=== PATIENT | female | born 1990 | race American Indian/Alaskan Native ===

== ENCOUNTER 2021-02-04 05:48 | Inpatient (IN) | payer OTHER ==
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
[~2021-02-04 05:48] MED LIST: BICITRA ORAL LIQD 30ML PO NR; FAMOTIDINE 20 MG/2 ML INJ IV NR
[2021-02-04] MEDS ORDERED: NALOXONE 0.4 MG/1 ML INJ IV PRN ×2 (06:20→12:00)
[2021-02-04] MEDS ORDERED: NalbUPHINE 10 MG/1 ML INJ IV PRN (06:20)
[2021-02-04] MEDS ORDERED: diphenhydrAMINE 50 MG/ML VIAL IV PRN (06:20)
[2021-02-04] MEDS ORDERED: LACTATED RINGERS 1,000 ML ONE ×2 (06:36→07:18)
[2021-02-04] MEDS: LACTATED RINGERS 1,000 ML IV SCH ×2 (06:45→07:48)
[2021-02-04 07:11] LABS: Basophils % (Auto) 0.2 % (0.0-1.8); Eosinophils # (Auto) 0.1 K/mm3 (0.0-0.4); Eosinophils % (Auto) 0.9 % (0.0-4.3); Hematocrit 31.7 % (30.3-42.9); Hemoglobin 10.2 gm/dl (10.1-14.3); Lymphocytes # (Auto) 1.3 K/mm3 (1.2-5.4); Lymphocytes % (Auto) 17.2 % (13.4-35.0); Mean Corpuscular HGB Conc 32 % (30-34); Mean Corpuscular Volume 82 fl (79-97); Monocytes # (Auto) 0.8 K/mm3 (0.0-0.8); Monocytes % (Auto) 11.2 % (0.0-7.3); Platelet Count 265 K/mm3 (140-440); Red Blood Count 3.89 M/mm3 (3.65-5.03); Red Cell Distribution Width 17.2 % (13.2-15.2)
[2021-02-04] MEDS ORDERED: PROMETHAZINE 25 MG RECT SUPP PR PRN ×2 (07:30→12:00)
[2021-02-04] MEDS ORDERED: ONDANSETRON 4 MG/2 ML INJ IV PRN ×2 (07:30→11:30)
[2021-02-04] MEDS ORDERED: PROMETHAZINE 25 MG TAB PO PRN (07:30)
--- NOTE | 2021-02-04 07:37 | Anesthesia Day of Surgery ---
Anesthesia Day of Surgery - Day of Surgery Patient Examined: Yes Patient H&P Reviewed: Yes Patient is NPO: Yes Beta Blockers: No Cardiac Clearance: No Pulmonary Clearance: No Jeremy's Test: N/A
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
[2021-02-04] MEDS ORDERED: METOCLOPRAMIDE 10 MG/2 ML INJ ONE (07:52)
[2021-02-04] MEDS ORDERED: miSOPROStol 200 MCG TAB ONE (07:53)
[2021-02-04] MEDS ORDERED: OXYTOCIN DRIP 30 UNITS/500 ML BAG IV SCH ×2 (08:00→12:00)
[2021-02-04] MEDS ORDERED: ceFAZolin/Water 2 GM/20 ML 2 GM/20 ML SYRINGE IV NR (08:00)
[2021-02-04] MEDS ORDERED: EMLA CREAM 5 GM TP PRN (08:00)
[2021-02-04] MEDS ORDERED: KETOROLAC 30 MG/1 ML INJ ONE (08:29)
[2021-02-04] MEDS ORDERED: BUPIVACAINE/PF (0.5%) 5 MG/1 ML 30 ML VIAL INFILTRATI ONE (08:29)
[2021-02-04] MEDS ORDERED: ESMOLOL 100 MG/10 ML INJ IV ONE (08:32)
[2021-02-04] MEDS ORDERED: ONDANSETRON 4 MG/2 ML INJ ONE (08:32)
[2021-02-04] MEDS ORDERED: dexAMETHasone 20 MG/5 ML VIAL ONE (08:33)
[2021-02-04] MEDS ORDERED: SODIUM CHLORIDE 0.9% IRR 1,500 ML BOTTLE IR ONE (08:45)
[2021-02-04] MEDS ORDERED: WATER FOR IRRIG STERILE 1,500 ML BOTTLE IR ONE (08:45)
[2021-02-04] MEDS ORDERED: PHENYLEPHRINE/NS 1,000 MCG/10 ML SYRINGE (OR USE) IV ONE (08:46)
[2021-02-04] MEDS ORDERED: CITRIC ACID-SOD CITRATE 500 ML IV ONE (08:46)
[2021-02-04] MEDS ORDERED: PHENYLEPHRINE 10 MG/1 ML INJ SDV ONE (08:46)
--- NOTE | 2021-02-04 08:54 | Progress Note ---
Spinal Anesthesia Block - Spinal Anesthesia Block Start Time: 08:16 Stop Time: 08:27 Performed by:: YANETH CHASE (Magali Wilkerson [facility]) Procedure: Spinal anesthesia block is being performed for [C/S]. H&P, labs have been reviewed. Patient's questions and concerns have been answered. Informed consent has been performed. Timeout has was performed. Patient in sitting position on side of bed. Sterile prep and drape was performed. 3 mL 1% lidocaine skin wheal at L [3]-L [4]. Needle introducer advanced. 25-gauge spinal needle advanced, [+] CSF []- blood. [Marcaine 10mg and Precedex 5mcg] Spinal dose was given. All needles removed. Patient tolerated procedure well.
[2021-02-04] MEDS ORDERED: SODIUM CHLORIDE 0.9% 1000 ML 1,000 ML ONE (09:35)
[2021-02-04] MEDS ORDERED: fentaNYL 100 MCG/2 ML INJ ONE (09:40)
--- NOTE | 2021-02-04 10:32 | Procedure Note ---
OB Delivery Note - Delivery Date of Delivery: 02/04/21 Surgeon: RIANNA GORDILLO JR Estimated blood loss: other (797 QBL, 150 cc blood transfusion for cellsaver) - Section Preop diagnosis: repeat Postop diagnosis: same section procedure: section, other (lysis of adhesions) Disposition: PACU Complications: other (blood-tinged urine after hysterotomy, continue to monitor) Narrative: Indication: 30 yo at 39w0d (KARAN 02/11/21) c/b prior c/s x 1 (for NRFHTs), reported hx of staph wound infection healed by 2/2 intention, refusing blood products for catholic reasons, GBS pos, hx anxiety and panic attacks on Zoloft, reports hx HSV (but neg IGG this , on suppression) presenting for repeat section. Findings: Normal uterus, tubes and ovaries. Clear fluid. No nuchal cord. Blood tinged urine noted at the end of the procedure Delivery of male infant at 0921 Weight 3390g Height 19 in APGARS 8/9 EBL 797 EBL, 150 cc return infusion from cell saver IVF 800cc UOP 150 cc blood tinged tinged Procedure: Patient was taken to the operating room prepped and draped in the usual sterile fashion. Pfannenstiel skin incision was made and carried down to the underlying fascia. Fascia was incised and the incision was distended bilaterally. Rectus fascia was dissected off the rectus muscle superiorly and inferiorly. Peritoneum was identified and entered. Peritoneal incision extended superiorly and inferiorly. The bladder was visualized. The bladder blade was placed. Uterine hysterotomy incision was made and extended bilaterally. The baby was delivered in the typical vertex fashion. Baby was bulb suction at delivery. The cord was cut and clamped and handed off to the team. The placenta was delivered spontaneously. The uterus was exteriorized and cleared of all clots and debris. Uterine incision was closed with a 0 Vicryl in a running locked fashion. Good hemostasis was noted. Surgicel powder was applied to the uterine incisional base to provide hemostasis. The urine was noted to be blood tinged. No evidence of damage to bladder on inspection. Uterus, tubes, and ovaries were returned to the abdominal cavity. Bilateral gutters were cleared and the abdomen and pelvis were irrigated. Good hemostasis noted. The rectus muscle was reapproximated with 2-0 Vicryl. Attention was directed towards the rectus fascia which was reapproximated with 0 PDS in a running fashion. The subcutaneous tissue was irrigated and reapproximated with 2-0 Vicryl in a running fashion. Skin was closed with a 4-0 Vicryl in a subcuticular fashion. The procedure was completed and the patient tolerated the procedure well. All instruments and lap counts were correct x2. - A at 1 minute: 8 at 5 minutes: 9 Infant Gender: Male
[2021-02-04] MEDS ORDERED: ACETAMINOPHEN 325 MG TAB PO PRN (11:30)
[2021-02-04] MEDS ORDERED: METOCLOPRAMIDE 10 MG/2 ML INJ IV ONE (11:39)
[2021-02-04] MEDS ORDERED: SENNOSIDES 8.6 MG TAB PO PRN (12:00)
[2021-02-04] MEDS ORDERED: LANOLIN/ZINC/DIMETHICONE (LANSINOH) 7 GM TP PRN (12:00)
[2021-02-04] MEDS ORDERED: HYDROCORTISONE 25 MG RECTAL SUPP PR PRN (12:00)
[2021-02-04 12:25] LABS: Hematocrit 30.4 % (30.3-42.9); Mean Corpuscular HGB Conc 33 % (30-34); Mean Corpuscular Volume 83 fl (79-97); Platelet Count 221 K/mm3 (140-440); Red Blood Count 3.66 M/mm3 (3.65-5.03); Red Cell Distribution Width 17.4 % (13.2-15.2)
[2021-02-04 12:49] LABS: Alanine Aminotransferase 13 units/L (7-56); Uric Acid 3.5 mg/dL (3.5-7.6)
[2021-02-04] MEDS: HYDROmorphone 1 MG/1 ML INJ IV PRN ×2 (14:14→18:56)
[2021-02-04] MEDS: MORPHINE 4 MG/1 ML INJ IV PRN ×2 (16:21→20:06)
[2021-02-04 19:00] LABS: Bilirubin,Urine NEG (Negative); Blood,Urine LG (Negative); Color,Urine Red (Yellow); Urobilinogen,Urine < 2.0 mg/dL (<2.0)
[2021-02-04 19:01] LABS: RBC,Urine > 182.0 /HPF (0.0-6.0)
[2021-02-04] MEDS: SIMETHICONE 80 MG CHEW TAB PO PRN (20:08)
[2021-02-04] MEDS: SERTRALINE 25 MG TAB PO SCH (20:37)
[2021-02-04] MEDS ORDERED: MAGNESIUM HYDROXIDE (MOM) ORAL LIQD UDC PO PRN (22:00)
[2021-02-05] MEDS: KETOROLAC 30 MG/1 ML INJ IV SCH ×3 (00:21→14:44)
[2021-02-05 00:52] LABS: Hematocrit 29.2 % (30.3-42.9); Hemoglobin 9.6 gm/dl (10.1-14.3)
[2021-02-05] MEDS: SIMETHICONE 80 MG CHEW TAB PO PRN (02:10)
[2021-02-05] MEDS: MORPHINE 4 MG/1 ML INJ IV PRN ×2 (02:10→17:06)
[2021-02-05] MEDS: HYDROmorphone 1 MG/1 ML INJ IV PRN ×2 (03:23→09:48)
[2021-02-05] MEDS: ALPRAZolam 0.25 MG TAB PO PRN ×3 (04:05→22:13)
[2021-02-05] MEDS ORDERED: FLUCONAZOLE 100 MG TAB PO ONE (08:37)
[2021-02-05] MEDS ORDERED: FLUCONAZOLE 200 MG TAB PO SCH (09:00)
--- NOTE | 2021-02-05 09:06 | Progress Note ---
Assessment and Plan A: S/P Repeat LTCS Vag mary Asymptomatic anemia Elevated urine WBCs P: Continue routine pp care Diflucan prescribed Ferrous Sulfate bid Urine cul ordered D/c home within 24-48 hours if stable Subjective - Subjective Date of service: 02/05/21 Principal diagnosis: s/p repeat LTCS Patient reports: appetite normal, voiding normally, pain well controlled, flatus, ambulating normally : doing well, bottle feeding Objective - Vital Signs Latest vital signs: Vital Signs Temp Pulse Resp BP BP Pulse Ox Pulse Ox 02/05/21 07:37 97.4 F L 81 16 109/62 98 02/05/21 04:35 98.3 F 88 20 128/63 100 02/05/21 00:43 98.2 F 92 H 20 116/65 98 02/04/21 20:00 99.1 F 93 H 20 135/87 100 100 02/04/21 16:13 98.8 F 85 18 124/78 98 02/04/21 12:45 99.2 F 92 H 16 132/79 100 02/04/21 12:10 97.8 F 02/04/21 12:00 93 H 16 110/70 97 02/04/21 11:45 89 17 122/76 100 02/04/21 11:40 83 16 127/78 100 02/04/21 11:35 83 16 131/90 100 02/04/21 11:25 84 16 123/86 99 02/04/21 11:15 80 16 136/90 98 02/04/21 11:00 81 18 137/96 98 02/04/21 10:55 77 18 139/94 98 02/04/21 10:50 97.4 F L 86 18 142/94 98 Intake and Output 02/04/21 02/05/21 02/05/21 22:59 06:59 14:59 Intake Total 120 240 Output Total 500 200 Balance -380 40 Intake: Oral 240 Intake, Free Water 120 Output: Urine 500 200 Indwelling Catheter 500 200 Other: Total, Intake Amount 240 Total, Output Amount 500 200 - Exam Breasts: Present: normal Abdomen: Present: normal appearance, soft, normal bowel sounds Vulva: both: normal Uterus: Present: normal, firm, fundal height below umbilicus Extremities: Present: normal Incision: Present: normal, dry, intact - Labs Labs: Abnormal lab results 02/04/21 02/04/21 02/04/21 Range/Units 11:45 11:45 23:52 Hgb 10.0 L 9.6 L (10.1-14.3) gm/dl Hct 29.2 L (30.3-42.9) % MCH 27 L (28-32) pg RDW 17.4 H (13.2-15.2) % Creatinine 0.4 L (0.6-1.2) mg/dL Lactate Dehydrogenase 388 H (91-180) units/L Urine WBC (Auto) (0.0-6.0) /HPF 02/04/21 Range/Units Unknown Hgb (10.1-14.3) gm/dl Hct (30.3-42.9) % MCH (28-32) pg RDW (13.2-15.2) % Creatinine (0.6-1.2) mg/dL Lactate Dehydrogenase (91-180) units/L Urine WBC (Auto) 99.0 H (0.0-6.0) /HPF
[2021-02-05] MEDS: FERROUS SULFATE 325 MG TAB PO SCH ×2 (09:49→22:13)
[2021-02-05] MEDS: SERTRALINE 25 MG TAB PO SCH (09:49)
--- NOTE | 2021-02-05 10:16 | Post Anesthesia Evaluation ---
- Post Anesthesia Evaluation Patient Participated: Yes Airway Patent: Yes Stable Respiratory Function: Yes Nausea/Vomiting: No Temp > 96.8F: Yes Pain Manageable: Yes Adequeate Hydration: Yes Anesthesia Complications: No Block Receding Appropriately: Yes Patient on Ventilator: No
[2021-02-05] MEDS: oxyCODONE /ACETAMINOPHEN 5-325MG TAB PO PRN (22:11)
[2021-02-06] MEDS: oxyCODONE /ACETAMINOPHEN 5-325MG TAB PO PRN ×2 (04:40→10:40)
[2021-02-06] MEDS: ALPRAZolam 0.25 MG TAB PO PRN (08:55)
[2021-02-06] MEDS: IBUPROFEN 800 MG TAB PO PRN ×2 (08:55→15:34)
[2021-02-06] MEDS: FERROUS SULFATE 325 MG TAB PO SCH (10:40)
[2021-02-06] MEDS: SERTRALINE 25 MG TAB PO SCH (11:07)
[2021-02-06] MEDS: WITCH HAZEL/ GLYCERIN PAD TP PRN (12:52)
--- NOTE | 2021-02-06 16:12 | Progress Note ---
Assessment and Plan A: S/P Repeat LTCS Asymptomatic anemia Elevated urine WBCs P: Continue routine pp monitoring Awaiting urine cul results Encourage ambulation D/C home tomm if stable Subjective - Subjective Date of service: 02/06/21 Principal diagnosis: s/p repeat LTCS Patient reports: appetite normal, voiding normally, pain well controlled, flatus, ambulating normally [place]: doing well, bottle feeding Objective - Vital Signs Latest vital signs: Vital Signs Temp Pulse Resp BP BP Pulse Ox Pulse Ox 02/06/21 08:04 97.8 F 108 H 18 127/80 100 02/06/21 08:00 99 02/06/21 04:40 18 02/06/21 00:00 98.6 F 74 105/78 02/05/21 22:11 18 02/05/21 19:30 98.2 F 92 H 18 134/85 98 02/05/21 17:12 98.7 F 94 H 18 121/71 97 Intake and Output 02/06/21 02/06/21 02/06/21 06:59 14:59 22:59 Other: # Voids Void 1 - Exam Breasts: Present: normal Abdomen: Present: normal appearance, soft, normal bowel sounds Vulva: both: normal Uterus: Present: normal, firm, fundal height below umbilicus Extremities: Present: normal Incision: Present: normal, dry, intact
--- NOTE | 2021-02-06 18:12 | Event Note ---
Date: 02/06/21 Called by nurse re pt's c/o inability to void. Nurse also notes that pt's abd incision has started to drain copious amts serous sang drainage. Upon exam pt's uterine incision was noted to have small amts serous sang sec, otherwise incision was intact and w/o s&s of infection. Pt states she has not voided today, but admits to passing gas. Pt's abd is distended with hypoactive BS X [address] Levine was notified and a medical consult was made.
--- NOTE | 2021-02-06 19:20 | XRay Report ---
ABDOMEN 1 VIEW INDICATION / CLINICAL INFORMATION: ileus. COMPARISON: None available. FINDINGS: TUBES / LINES: None. BOWEL GAS PATTERN: There is diffuse gaseous distention of the bowel throughout the abdomen, involving both the small bowel and colon. Moderate colonic stool burden seen in the right colon. FREE AIR / EXTRALUMINAL GAS: No free air. ADDITIONAL FINDINGS: No significant additional findings. IMPRESSION: Nonspecific diffuse gaseous distention of the small bowel and colon, favored to reflect ileus. Signer Name: Branden Weiner MD Signed: 02/06/2021 7:16 PM Workstation Name: [id number]
[2021-02-06 19:37] LABS: Hematocrit 33.9 % (30.3-42.9); Mean Corpuscular HGB Conc 33 % (30-34); Mean Corpuscular Volume 83 fl (79-97); Platelet Count 259 K/mm3 (140-440); Red Blood Count 4.11 M/mm3 (3.65-5.03); Red Cell Distribution Width 18.5 % (13.2-15.2)
[2021-02-06 19:41] LABS: Albumin 2.7 g/dL (3.9-5); Calcium 8.8 mg/dL (8.4-10.2)
[2021-02-06] MEDS ORDERED: diazePAM 10 MG/2 ML SYRINGE IV ONE (20:00)
[2021-02-06] MEDS: LACTATED RINGERS 1,000 ML IV SCH (20:38)
[2021-02-06] MEDS: KETOROLAC 30 MG/1 ML INJ IV PRN (22:12)
--- NOTE | 2021-02-06 22:19 | Cat Scan Report ---
CT ABDOMEN AND PELVIS WITHOUT CONTRAST INDICATION / CLINICAL INFORMATION: Large bowel obstruction. TECHNIQUE: Axial CT images were obtained through the abdomen and pelvis without IV contrast. All CT scans at this location are performed using CT dose reduction for ALARA by means of automated exposure control. COMPARISON: Same day abdominal radiograph FINDINGS: There is bibasilar volume loss and trace bibasilar pleural effusions. Liver unremarkable. Gallbladder is distended without evidence of cholecystitis. Pancreas, spleen, and adrenals are unremarkable. Unenhanced kidneys demonstrate no acute abnormality. No hydronephrosis. B ladder is partially decompressed. There is a tiny focus of gas within the bladder, likely related to recent instrumentation. No significant bladder wall thickening. uterus is enlarged. Postsu rgical changes of recent section with fat stranding of the anterior lower abdomen. Scattered areas of gas are present within the anterior abdominal wall and within the rectus muscles. No organi zed collection is identified. There is large volume ascites. No intraperitoneal free air is identified. The distal small bowel and colon are dilated. The cecum measures up to 9.2 cm. There is transition to normal caliber colon at th e splenic flexure (series 2 image 56). IMPRESSION: 1. Distal small bowel and colon are dilated with transition to normal caliber colon at the splenic fl exure. This is suspicious for mechanical obstruction, possibly related to large volume ascites or adh esions. No pneumatosis or pneumoperitoneum. 2. Large volume bland appearing ascites is nonspecific and could reflect a spacing of fluid. Trace bi basilar pleural effusions are also present. 3. Recent postsurgical changes of section. 4. Other incidental findings as above. Signer Name: Branden Weiner MD Signed: 02/06/2021 10:15 PM Workstation Name: [id number]
--- NOTE | 2021-02-06 23:45 | Consultation ---
History of Present Illness - Reason for Consult Consult date: 02/06/21 Medical management Requesting physician: SLIME HOLLIS - History of Present Illness Patient had a . Since 2 days patient has been having the abdominal distention. Minimal urine output. Last time she passed flatus was yesterday. Serosanguineous discharge from the incision site of her . Patient was called to evaluate for possible small bowel obstruction/acute kidney injury. CT scan was ordered CT scan of the abdomen was done with contrast. CT scan showed small bowel obstruction and colonic dilatation till the splenic flexure. Possible obstruction at the splenic flexure. Nausea present. No vomiting. No fever or chills. Past History Past Medical History: No medical history Past Surgical History: Social history: lives with family, smoking (hx MJ use), full code Family history: hypertension Medications and Allergies Allergies Allergy/AdvReac Type Severity Reaction Status Date / Time No Known Allergies Allergy Unverified 02/04/21 06:54 Home Medications Medication Instructions Recorded Confirmed Last Taken Type Ibuprofen [Motrin 800 MG tab] 800 mg PO Q6H PRN #30 tablet 02/04/21 Unknown Rx oxyCODONE /ACETAMINOPHEN [Percocet 1 tab PO Q6H PRN #30 tablet 02/04/21 Unknown Rx 5/325 mg] Active Meds: Active Medications Acetaminophen (Acetaminophen 325 Mg Tab) 650 mg PO Q4H PRN PRN Reason: Fever >100.5/LANIER Alprazolam (Alprazolam 0.25 Mg Tab) 0.5 mg PO Q8H PRN PRN Reason: Anxiety Last Admin: 02/06/21 08:55 Dose: 0.5 mg Documented by: Diphenhydramine HCl (Diphenhydramine 50 Mg/Ml Vial) 12.5 mg IV Q2H PRN PRN Reason: Itching Ferrous Sulfate (Ferrous Sulfate 325 Mg Tab) 325 mg PO BID TRISHA Last Admin: 02/06/21 10:40 Dose: 325 mg Documented by: Furosemide (Furosemide 20 Mg/2 Ml Inj) 20 mg IV ONCE ONE Stop: 02/07/21 00:06 Hydrocortisone Acetate (Hydrocortisone 25 Mg Rectal Supp) 25 mg FL BID PRN PRN Reason: Hemorrhoids Oxytocin/Sodium Chloride (Pitocin/Ns 30 Unit/500ml) 30 units in 500 mls @ 0 mls/hr IV TITR TRISHA; Protocol Oxytocin/Sodium Chloride (Pitocin/Ns 30 Unit/500ml) 30 units in 500 mls @ 40 mls/hr IV TITR TRISHA; Protocol Lactated Ringer's (Lactated Ringers) 1,000 mls @ 125 mls/hr IV DIRECT TRISHA Last Admin: 02/06/21 20:38 Dose: 125 mls/hr Documented by: Dextrose/Lactated Ringer's ([email or web address]) 1,000 mls @ 150 mls/hr IV DIRECT TRISHA Ampicillin Sodium (Ampicillin/Ns 2 Gm/100 Ml) 2 gm in 100 mls @ 100 mls/hr IV Q6H TRISHA; Protocol Stop: 02/08/21 13:59 Ibuprofen (Ibuprofen 800 Mg Tab) 800 mg PO Q6H PRN PRN Reason: Pain, Mild (1-3) Last Admin: 02/06/21 15:34 Dose: 800 mg Documented by: Ketorolac Tromethamine (Ketorolac 30 Mg/1 Ml Inj) 30 mg IV Q6H PRN PRN Reason: Pain, Moderate (4-6) Stop: 02/11/21 18:10 Last Admin: 02/06/21 22:12 Dose: 30 mg Documented by: Magnesium Hydroxide (Magnesium Hydroxide (Mom) Oral Liqd Udc) 30 ml PO QHS PRN PRN Reason: Constip Unrelieved By Senna Last Admin: 02/06/21 15:34 Dose: 30 ml Documented by: Multi-Ingredient Ointment (Lanolin/Zinc/Dimethicone (Lansinoh) 7 Gm) 1 applic TP PRN PRN PRN Reason: dryness/cracking Nalbuphine HCl (Nalbuphine 10 Mg/1 Ml Inj) 2.5 mg IV Q2H PRN PRN Reason: Itching Naloxone HCl (Naloxone 0.4 Mg/1 Ml Inj) 0.2 mg IV Q2MIN PRN PRN Reason: Res Rate </= 8 or 02 SAT < 92% Ondansetron HCl (Ondansetron 4 Mg/2 Ml Inj) 4 mg IV Q8H PRN PRN Reason: Nausea And Vomiting Oxycodone/Acetaminophen (Oxycodone /Acetaminophen 5-325mg Tab) 2 tab PO Q8H PRN PRN Reason: Pain, Moderate (4-6) Last Admin: 02/06/21 10:40 Dose: 2 tab Documented by: Promethazine HCl (Promethazine 25 Mg Tab) 25 mg PO Q6H PRN PRN Reason: Nausea And Vomiting Promethazine HCl (Promethazine 25 Mg Rect Supp) 25 mg FL Q6H PRN PRN Reason: N/V IF NPO AND NO IV ACCESS Senna (Sennosides 8.6 Mg Tab) 17.2 mg PO QHS PRN PRN Reason: Constipation Sertraline HCl (Sertraline 25 Mg Tab) 25 mg PO QDAY TRISHA Last Admin: 02/06/21 11:07 Dose: 25 mg Documented by: Simethicone (Simethicone 80 Mg Chew Tab) 80 mg PO Q6H PRN PRN Reason: Gas pain Last Admin: 02/05/21 02:10 Dose: 80 mg Documented by: Sodium Chloride (Sodium Chloride 0.9% 10 Ml Flush Syringe) 10 ml IV PRN PRN PRN Reason: flush Witch Jillian/Glycerin (Witch Jillian/ Glycerin Pad) 1 each TP PRN PRN PRN Reason: Hemorrhoids/cleansing/soothing Last Admin: 02/06/21 12:52 Dose: 1 each Documented by: Review of Systems All systems: negative Gastrointestinal: nausea, other (Abdominal distention, no flatus) Exam - Constitutional Vitals: Temp Pulse Resp BP Pulse Ox 97.9 F 107 H 18 130/75 97 02/06/21 15:41 02/06/21 15:41 02/06/21 15:41 02/06/21 15:41 02/06/21 20:20 General appearance: Present: mild distress, well-nourished - EENT Eyes: Present: PERRL ENT: hearing intact, clear oral mucosa - Neck Neck: Present: supple, normal ROM - Respiratory Respiratory effort: normal Respiratory: bilateral: CTA - Cardiovascular Heart rate: 78 Rhythm: regular Heart Sounds: Present: S1 & S2. Absent: rub, click - Extremities Extremities: no ischemia, pulses intact, pulses symmetrical, No edema Peripheral Pulses: within normal limits - Abdominal General gastrointestinal: Present: distended, absent bowel sounds Localized gastrointestinal: tender: diffuse Female genitourinary: Present: normal - Integumentary Integumentary: Present: clear, warm, dry - Musculoskeletal Musculoskeletal: gait normal, strength equal bilaterally - Psychiatric Psychiatric: appropriate mood/affect, intact judgment & insight - Neurologic Neurologic: CNII-XII intact, moves all extremities - Allied Health Allied health notes reviewed: nursing, case management Results - Labs CBC & Chem 7: 02/06/21 18:48 02/06/21 18:48 Labs: Abnormal lab results 02/06/21 02/06/21 Range/Units 18:48 18:48 MCH 27 L (28-32) pg RDW 18.5 H (13.2-15.2) % Sodium 131 L (137-145) mmol/L Carbon Dioxide 18 L (22-30) mmol/L BUN 36 H (7-17) mg/dL Creatinine 4.2 H D (0.6-1.2) mg/dL Albumin 2.7 L (3.9-5) g/dL Short CBC 02/06/21 Range/Units 18:48 WBC 9.2 (4.5-11.0) K/mm3 Hgb 11.0 (10.1-14.3) gm/dl Hct 33.9 (30.3-42.9) % Plt Count 259 (140-440) K/mm3 BMP 02/06/21 18:48 Sodium 131 L Potassium 4.3 Chloride 99.8 Carbon Dioxide 18 L BUN 36 H Creatinine 4.2 H D Glucose 90 Calcium 8.8 Liver Function 02/06/21 Range/Units 18:48 Total Bilirubin 0.30 (0.1-1.2) mg/dL AST 23 (5-40) units/L ALT 15 (7-56) units/L Alkaline Phosphatase 91 (35-129) units/L Albumin 2.7 L (3.9-5) g/dL Abdominal x-ray Nonspecific diffuse gaseous distention of the small bowel and colon favored to reflect ileus Abdominal CAT scan Distal small bowel and colon are dilated with transition to normal caliber: At the splenic flexure. This is suspicious for mechanical obstruction possibly related to large volume ascites or lesions. No pneumatosis or pneumoperitoneum. Large volume bland appearing ascites is nonspecific and could reflect a spacing of fluid. Changes bibasilar pleural effusion pleural effusions are present. Recent postsurgical changes are present. Assessment and Plan - Patient Problems (1) Small bowel obstruction Current Visit: Yes Status: Acute Plan to address problem: With transition into the colon ~splenic flexure. Possible ideations versus compression by the sciatic fluid Urgent surgery consult requested NG tube till then (2) LUIS FELIPE (acute kidney injury) Current Visit: Yes Status: Acute Plan to address problem: ATN versus vasomotor nephropathy Questionable contrast-induced IV fluids for now Nephrology consult requested We will repeat the BMP because there is a dramatic rise in creatinine which may be an error to be ruled out (3) S/P Current Visit: Yes Status: Acute Plan to address problem: Slight serosanguineous discharge present Otherwise surgical incision looks near normal (4) Urinary tract infection Current Visit: Yes Status: Acute Plan to address problem: IV Rocephin 1 g every 24 (5) DVT prophylaxis Current Visit: Yes Status: Acute Plan to address problem: On SCDs and GI prophylaxis
[2021-02-06] MEDS: AMPICILLIN/NS 2 GM/100 ML 2 GM/100 ML BAG IV SCH (23:54)
[2021-02-07] MEDS ORDERED: FUROSEMIDE 20 MG/2 ML INJ IV ONE (00:05)
[2021-02-07 01:17] LABS: Albumin 2.9 g/dL (3.9-5); Calcium 8.5 mg/dL (8.4-10.2)
--- NOTE | 2021-02-07 03:31 | XRay Report ---
ABDOMEN 1 VIEW(S) 02/07/2021 2:16 AM INDICATION / CLINICAL INFORMATION: confirm placement of NG tube.POST . COMPARISON: None available. FINDINGS: The tip of an esophagogastric tube projects over the body of the stomach in expected position. Signer Name: Jacek Amaral MD Signed: 02/07/2021 3:27 AM Workstation Name: [id number]
[2021-02-07] MEDS ORDERED: MORPHINE 2 MG/1 ML INJ IM ONE (03:40)
[2021-02-07] MEDS ORDERED: ONDANSETRON 4 MG/2 ML INJ IM ONE (03:41)
[2021-02-07 05:18] LABS: Basophils % (Auto) 0.1 % (0.0-1.8); Eosinophils % (Auto) 0.3 % (0.0-4.3); Hematocrit 31.9 % (30.3-42.9); Hemoglobin 10.6 gm/dl (10.1-14.3); Lymphocytes # (Auto) 0.6 K/mm3 (1.2-5.4); Lymphocytes % (Auto) 6.2 % (13.4-35.0); Mean Corpuscular HGB Conc 33 % (30-34); Mean Corpuscular Volume 83 fl (79-97); Monocytes # (Auto) 0.6 K/mm3 (0.0-0.8); Monocytes % (Auto) 5.6 % (0.0-7.3); Platelet Count 267 K/mm3 (140-440); Red Blood Count 3.87 M/mm3 (3.65-5.03)
[2021-02-07 05:24] LABS: INR 0.95 (0.87-1.13)
[2021-02-07 05:25] LABS: Partial Thromboplastin Time 33.5 Sec. (24.2-36.6)
[2021-02-07 05:31] LABS: Albumin 2.7 g/dL (3.9-5); Calcium 8.9 mg/dL (8.4-10.2)
[2021-02-07] MEDS: AMPICILLIN/NS 2 GM/100 ML 2 GM/100 ML BAG IV SCH ×4 (05:43→23:36)
[2021-02-07] MEDS: LACTATED RINGERS 1,000 ML IV SCH (05:43)
[2021-02-07] MEDS: FERROUS SULFATE 325 MG TAB PO SCH (06:40)
[2021-02-07] MEDS: KETOROLAC 30 MG/1 ML INJ IV PRN ×2 (09:48→15:45)
--- NOTE | 2021-02-07 10:33 | Procedure Note ---
Date of procedure: 02/07/21 Pre-op diagnosis: ascites Post-op diagnosis: other (hemoperitoneum) Procedure: US paracentesis Findings: small to medium ascites Anesthesia: local Surgeon: ALEX DUMAS Estimated blood loss: none Pathology: list (120cc collected) Specimen disposition: to lab Condition: stable Disposition: floor
--- NOTE | 2021-02-07 10:38 | Ultrasound Report ---
ULTRASOUND-GUIDED PARACENTESIS HISTORY: Ascites. PROCEDURE: The risks (including but not limited to bleeding, infection, and bowel injury) and benefi ts were explained to the patient and informed consent was obtained. A time out procedure was perform ed. Ultrasound was used to evaluate the abdomen and locate the largest ascites fluid pocket. Once the sk in was marked, the procedure site was prepped and draped in the usual sterile fashion and lidocaine w as used for local anesthesia. A skin orlando was made and a 5 Vincentian centesis catheter was placed. The patient was monitored closely throughout the procedure, and a total of 500 mL of bloody fluid was as pirated. Samples were sent to the lab for further evaluation per the primary clinicians orders. The patient tolerated the procedure well with no complications. IMPRESSION: Successful ultrasound-guided paracentesis as described. Signer Name: Bijan Cosme Jr, MD Signed: 02/07/2021 10:33 AM Workstation Name: [id number]
--- NOTE | 2021-02-07 11:23 | Progress Note ---
Assessment and Plan Patient does have a problem with elevated BUN and creatinine. We have consulted with the hospitalist. We are getting a kidney specialist consultation about this problem. Her BUN and creatinine are markedly elevated earlier this morning however they appear to be coming down but they are still not normal. - Patient Problems (1) DVT prophylaxis Current Visit: Yes Status: Acute (2) S/P Current Visit: Yes Status: Acute (3) Small bowel obstruction Current Visit: Yes Status: Acute (4) Urinary tract infection Current Visit: Yes Status: Acute (5) Anxiety Current Visit: No Status: Acute (6) H/O: Current Visit: No Status: Acute Plan to address problem: Continue to follow the patient postop for section we will consult with our consultants and see what is going on with her kidneys today and tomorrow. And we will repeat her CMP in the a.m. Subjective - Subjective Date of service: 02/07/21 Principal diagnosis: s/p repeat LTCS Interval history: Patient. Increase abdominal fluid. Patient has been given NG tube and Hines catheter urine output she had a paracentesis with removal of ascitic fluid from her abdominal cavity this morning. Patient reports: flatus : doing well Objective - Vital Signs Latest vital signs: Vital Signs Temp Pulse Resp BP Pulse Ox Pulse Ox 02/07/21 08:19 98.0 F 109 H 18 124/75 100 02/07/21 05:41 97 02/07/21 05:35 112 H 02/07/21 05:34 98.6 F 120 H 18 121/74 97 02/07/21 03:30 97 02/07/21 01:50 97 02/07/21 00:18 98.0 F 115 H 16 124/79 97 02/07/21 00:01 97 02/06/21 22:30 98 02/06/21 20:20 97 02/06/21 15:41 97.9 F 107 H 18 130/75 98 Intake and Output 02/06/21 02/07/21 02/07/21 23:59 07:59 15:59 Intake Total 1100 Output Total 1950 Balance -850 Intake: IV 1100 AMPICILLIN/NS 2 GM/100 ML 100 2 gm In 100 ml @ 100 mls /hr IV Q6H [facility] Rx#: [id number] Lactated Ringers 1,000 ml 1000 @ 125 mls/hr IV DIRECT [facility] Rx#:[id number] Output: Urine 1950 Indwelling Catheter 1950 Other: Total, Output Amount 300 - Exam Breasts: Present: deferred Abdomen: Present: distention, abnormal bowel sounds, other (non-tenderness) - Labs Labs: Abnormal lab results 02/06/21 02/06/21 02/07/21 Range/Units 18:48 18:48 00:33 MCH 27 L (28-32) pg RDW 18.5 H (13.2-15.2) % Lymph % (Auto) (13.4-35.0) % Lymph # (Auto) (1.2-5.4) K/mm3 Seg Neutrophils % (40.0-70.0) % Seg Neutrophils # (1.8-7.7) K/mm3 Sodium 131 L 131 L (137-145) mmol/L Carbon Dioxide 18 L 19 L (22-30) mmol/L BUN 36 H 33 H (7-17) mg/dL Creatinine 4.2 H D 3.2 H (0.6-1.2) mg/dL Albumin 2.7 L 2.9 L (3.9-5) g/dL 02/07/21 02/07/21 Range/Units 03:25 03:25 MCH (28-32) pg RDW 18.0 H (13.2-15.2) % Lymph % (Auto) 6.2 L (13.4-35.0) % Lymph # (Auto) 0.6 L (1.2-5.4) K/mm3 Seg Neutrophils % 87.8 H (40.0-70.0) % Seg Neutrophils # 9.0 H (1.8-7.7) K/mm3 Sodium 133 L (137-145) mmol/L Carbon Dioxide 21 L (22-30) mmol/L BUN 27 H (7-17) mg/dL Creatinine 1.9 H (0.6-1.2) mg/dL Albumin 2.7 L (3.9-5) g/dL
[2021-02-07 13:09] LABS: Total Cells Counted 100 /mm3
--- NOTE | 2021-02-07 17:21 | Progress Note ---
Assessment and Plan - Patient Problems (1) Small bowel obstruction Current Visit: Yes Status: Acute Plan to address problem: With transition into the colon ~splenic flexure. Possible ideations versus compression by the sciatic fluid Urgent surgery consult requested NG tube till then (2) LUIS FELIPE (acute kidney injury) Current Visit: Yes Status: Acute Plan to address problem: ATN versus vasomotor nephropathy Questionable contrast-induced IV fluids for now Nephrology consult requested We will repeat the BMP because there is a dramatic rise in creatinine which may be an error to be ruled out (3) S/P Current Visit: Yes Status: Acute Plan to address problem: Slight serosanguineous discharge present Otherwise surgical incision looks near normal (4) Urinary tract infection Current Visit: Yes Status: Acute Plan to address problem: IV Rocephin 1 g every 24 (5) DVT prophylaxis Current Visit: Yes Status: Acute Plan to address problem: On SCDs and GI prophylaxis Subjective Date of service: 02/07/21 Principal diagnosis: s/p repeat LTCS Objective - Constitutional Vitals: Vital Signs - 12hr 02/07/21 02/07/21 02/07/21 05:34 05:35 05:41 Temperature 98.6 F Pulse Rate 120 H 112 H Respiratory 18 Rate Blood Pressure 121/74 O2 Sat by Pulse 97 Oximetry O2 Sat by Pulse 97 Oximetry [ Bilateral] 02/07/21 02/07/21 08:19 16:26 Temperature 98.0 F 98.4 F Pulse Rate 109 H 99 H Respiratory 18 18 Rate Blood Pressure 124/75 126/79 O2 Sat by Pulse 100 97 Oximetry O2 Sat by Pulse Oximetry [ Bilateral] - Labs CBC & Chem 7: 02/07/21 03:25 02/07/21 03:25 Labs: Abnormal lab results 02/06/21 02/06/21 02/07/21 Range/Units 18:48 18:48 00:33 MCH 27 L (28-32) pg RDW 18.5 H (13.2-15.2) % Lymph % (Auto) (13.4-35.0) % Lymph # (Auto) (1.2-5.4) K/mm3 Seg Neutrophils % (40.0-70.0) % Seg Neutrophils # (1.8-7.7) K/mm3 Sodium 131 L 131 L (137-145) mmol/L Carbon Dioxide 18 L 19 L (22-30) mmol/L BUN 36 H 33 H (7-17) mg/dL Creatinine 4.2 H D 3.2 H (0.6-1.2) mg/dL Albumin 2.7 L 2.9 L (3.9-5) g/dL 02/07/21 02/07/21 Range/Units 03:25 03:25 MCH (28-32) pg RDW 18.0 H (13.2-15.2) % Lymph % (Auto) 6.2 L (13.4-35.0) % Lymph # (Auto) 0.6 L (1.2-5.4) K/mm3 Seg Neutrophils % 87.8 H (40.0-70.0) % Seg Neutrophils # 9.0 H (1.8-7.7) K/mm3 Sodium 133 L (137-145) mmol/L Carbon Dioxide 21 L (22-30) mmol/L BUN 27 H (7-17) mg/dL Creatinine 1.9 H (0.6-1.2) mg/dL Albumin 2.7 L (3.9-5) g/dL
[2021-02-07] MEDS: D5W/LACTATED RINGERS 1,000 ML IV SCH (17:57)
--- NOTE | 2021-02-07 19:04 | Consultation ---
History of Present Illness Consult date: 02/07/21 Reason for consult: other (Possible SBO) - History of present illness History of present illness: 30 yo female 3 days s/p . She has an NG in. She is currently passing flatus. No BM for about 5 days. No other prior surgery. Past History Past Medical History: No medical history Past Surgical History: Social history: lives with family, smoking (hx MJ use), full code Family history: hypertension Medications and Allergies Allergies Allergy/AdvReac Type Severity Reaction Status Date / Time No Known Allergies Allergy Unverified 02/04/21 06:54 Home Medications Medication Instructions Recorded Confirmed Last Taken Type Ibuprofen [Motrin 800 MG tab] 800 mg PO Q6H PRN #30 tablet 02/04/21 Unknown Rx oxyCODONE /ACETAMINOPHEN [Percocet 1 tab PO Q6H PRN #30 tablet 02/04/21 Unknown Rx 5/325 mg] Active Meds: Active Medications Acetaminophen (Acetaminophen 325 Mg Tab) 650 mg PO Q4H PRN PRN Reason: Fever >100.5/LANIER Alprazolam (Alprazolam 0.25 Mg Tab) 0.5 mg PO Q8H PRN PRN Reason: Anxiety Last Admin: 02/06/21 08:55 Dose: 0.5 mg Documented by: Diphenhydramine HCl (Diphenhydramine 50 Mg/Ml Vial) 12.5 mg IV Q2H PRN PRN Reason: Itching Ferrous Sulfate (Ferrous Sulfate 325 Mg Tab) 325 mg PO BID TRISHA Last Admin: 02/07/21 06:40 Dose: Not Given Documented by: Hydrocortisone Acetate (Hydrocortisone 25 Mg Rectal Supp) 25 mg ID BID PRN PRN Reason: Hemorrhoids Oxytocin/Sodium Chloride (Pitocin/Ns 30 Unit/500ml) 30 units in 500 mls @ 0 mls/hr IV TITR TRISHA; Protocol Oxytocin/Sodium Chloride (Pitocin/Ns 30 Unit/500ml) 30 units in 500 mls @ 40 mls/hr IV TITR TRISHA; Protocol Lactated Ringer's (Lactated Ringers) 1,000 mls @ 125 mls/hr IV DIRECT TRISHA Last Admin: 02/07/21 05:43 Dose: 125 mls/hr Documented by: Dextrose/Lactated Ringer's (D5lr) 1,000 mls @ 150 mls/hr IV DIRECT TRISHA Last Admin: 02/07/21 17:57 Dose: 150 mls/hr Documented by: Ampicillin Sodium (Ampicillin/Ns 2 Gm/100 Ml) 2 gm in 100 mls @ 100 mls/hr IV Q6H [facility]; Protocol Stop: 02/08/21 13:59 Last Admin: 02/07/21 12:31 Dose: 100 mls/hr Documented by: Ceftriaxone Sodium (Rocephin/Ns 1 Gm/50 Ml) 1 gm in 50 mls @ 100 mls/hr IV Q24H [facility]; Protocol Ibuprofen (Ibuprofen 800 Mg Tab) 800 mg PO Q6H PRN PRN Reason: Pain, Mild (1-3) Last Admin: 02/06/21 15:34 Dose: 800 mg Documented by: Ketorolac Tromethamine (Ketorolac 30 Mg/1 Ml Inj) 30 mg IV Q6H PRN PRN Reason: Pain, Moderate (4-6) Stop: 02/11/21 18:10 Last Admin: 02/07/21 15:45 Dose: 30 mg Documented by: Magnesium Hydroxide (Magnesium Hydroxide (Mom) Oral Liqd Udc) 30 ml PO QHS PRN PRN Reason: Constip Unrelieved By Senna Last Admin: 02/06/21 15:34 Dose: 30 ml Documented by: Multi-Ingredient Ointment (Lanolin/Zinc/Dimethicone (Lansinoh) 7 Gm) 1 applic TP PRN PRN PRN Reason: dryness/cracking Nalbuphine HCl (Nalbuphine 10 Mg/1 Ml Inj) 2.5 mg IV Q2H PRN PRN Reason: Itching Naloxone HCl (Naloxone 0.4 Mg/1 Ml Inj) 0.2 mg IV Q2MIN PRN PRN Reason: Res Rate </= 8 or 02 SAT < 92% Ondansetron HCl (Ondansetron 4 Mg/2 Ml Inj) 4 mg IV Q8H PRN PRN Reason: Nausea And Vomiting Last Admin: 02/07/21 03:32 Dose: 4 mg Documented by: Oxycodone/Acetaminophen (Oxycodone /Acetaminophen 5-325mg Tab) 2 tab PO Q8H PRN PRN Reason: Pain, Moderate (4-6) Last Admin: 02/06/21 10:40 Dose: 2 tab Documented by: Promethazine HCl (Promethazine 25 Mg Tab) 25 mg PO Q6H PRN PRN Reason: Nausea And Vomiting Promethazine HCl (Promethazine 25 Mg Rect Supp) 25 mg ID Q6H PRN PRN Reason: N/V IF NPO AND NO IV ACCESS Senna (Sennosides 8.6 Mg Tab) 17.2 mg PO QHS PRN PRN Reason: Constipation Sertraline HCl (Sertraline 25 Mg Tab) 25 mg PO QDAY TRISHA Last Admin: 02/06/21 11:07 Dose: 25 mg Documented by: Simethicone (Simethicone 80 Mg Chew Tab) 80 mg PO Q6H PRN PRN Reason: Gas pain Last Admin: 02/05/21 02:10 Dose: 80 mg Documented by: Sodium Chloride (Sodium Chloride 0.9% 10 Ml Flush Syringe) 10 ml IV PRN PRN PRN Reason: flush Witch Jillian/Glycerin (Witch Jillian/ Glycerin Pad) 1 each TP PRN PRN PRN Reason: Hemorrhoids/cleansing/soothing Last Admin: 02/06/21 12:52 Dose: 1 each Documented by: Review of Systems All systems: negative (none) Exam Vital Signs Temp Pulse Resp BP 98.2 F 100 H 15 127/67 02/04/21 07:33 02/04/21 07:33 02/04/21 07:33 02/04/21 07:33 - General physical appearance Positive: well developed, well nourished, no distress - Eyes Positive: PERRL, normal occular movement - ENT Positive: normal pinna, normal nares, normal mucosa, no hearing loss, no congestion - Neck Positive: no masses, no bruits, trachea midline, no venous distension - Respiratory Positive: normal expansion, normal respiratory effort, clear to auscultation - Cardiovascular Rhythm: regular Heart Sounds: Present: S1 & S2. Absent: rub, click - Extremities Extremities: no ischemia, pulses symmetrical, No edema - Breasts Breasts: normal, no mass, no skin changes - Abdomen Abdomen: Present: soft, bowel sounds hypoactive, other (Abdomen is moderately protuberant.). Absent: tender Hernia: none - Genitourinary Male Genitourinary: normal Female Genitourinary: normal - Integumentary no rash, no growths, no abnormal pigmentation - Neurologic Neurologic: alert and oriented to time, place and person, motor strength and sensation are grossly intact - Musculoskeletal normal gait, normal posture - Psychiatric Psychiatric: appropriate mood/affect, intact judgment & insight Results - Labs 02/07/21 03:25 02/07/21 03:25 Abnormal lab results 02/06/21 02/06/21 02/07/21 Range/Units 18:48 18:48 00:33 MCH 27 L (28-32) pg RDW 18.5 H (13.2-15.2) % Lymph % (Auto) (13.4-35.0) % Lymph # (Auto) (1.2-5.4) K/mm3 Seg Neutrophils % (40.0-70.0) % Seg Neutrophils # (1.8-7.7) K/mm3 Sodium 131 L 131 L (137-145) mmol/L Carbon Dioxide 18 L 19 L (22-30) mmol/L BUN 36 H 33 H (7-17) mg/dL Creatinine 4.2 H D 3.2 H (0.6-1.2) mg/dL Albumin 2.7 L 2.9 L (3.9-5) g/dL 02/07/21 02/07/21 Range/Units 03:25 03:25 MCH (28-32) pg RDW 18.0 H (13.2-15.2) % Lymph % (Auto) 6.2 L (13.4-35.0) % Lymph # (Auto) 0.6 L (1.2-5.4) K/mm3 Seg Neutrophils % 87.8 H (40.0-70.0) % Seg Neutrophils # 9.0 H (1.8-7.7) K/mm3 Sodium 133 L (137-145) mmol/L Carbon Dioxide 21 L (22-30) mmol/L BUN 27 H (7-17) mg/dL Creatinine 1.9 H (0.6-1.2) mg/dL Albumin 2.7 L (3.9-5) g/dL Diabetes panel 02/06/21 02/07/21 02/07/21 Range/Units 18:48 00:33 03:25 Sodium 131 L 131 L 133 L (137-145) mmol/L Potassium 4.3 4.1 4.0 (3.6-5.0) mmol/L Chloride 99.8 98.5 101.0 (98-107) mmol/L Carbon Dioxide 18 L 19 L 21 L (22-30) mmol/L BUN 36 H 33 H 27 H (7-17) mg/dL Creatinine 4.2 H D 3.2 H 1.9 H (0.6-1.2) mg/dL Glucose 90 89 84 (65-100) mg/dL Calcium 8.8 8.5 8.9 (8.4-10.2) mg/dL AST 23 21 20 (5-40) units/L ALT 15 16 14 (7-56) units/L Alkaline Phosphatase 91 97 87 (35-129) units/L Total Protein 6.5 7.0 6.4 (6.3-8.2) g/dL Albumin 2.7 L 2.9 L 2.7 L (3.9-5) g/dL Calcium panel 02/06/21 02/07/21 02/07/21 Range/Units 18:48 00:33 03:25 Calcium 8.8 8.5 8.9 (8.4-10.2) mg/dL Albumin 2.7 L 2.9 L 2.7 L (3.9-5) g/dL Pituitary panel 02/06/21 02/07/21 02/07/21 Range/Units 18:48 00:33 03:25 Sodium 131 L 131 L 133 L (137-145) mmol/L Potassium 4.3 4.1 4.0 (3.6-5.0) mmol/L Chloride 99.8 98.5 101.0 (98-107) mmol/L Carbon Dioxide 18 L 19 L 21 L (22-30) mmol/L BUN 36 H 33 H 27 H (7-17) mg/dL Creatinine 4.2 H D 3.2 H 1.9 H (0.6-1.2) mg/dL Glucose 90 89 84 (65-100) mg/dL Calcium 8.8 8.5 8.9 (8.4-10.2) mg/dL Adrenal panel 02/06/21 02/07/21 02/07/21 Range/Units 18:48 00:33 03:25 Sodium 131 L 131 L 133 L (137-145) mmol/L Potassium 4.3 4.1 4.0 (3.6-5.0) mmol/L Chloride 99.8 98.5 101.0 (98-107) mmol/L Carbon Dioxide 18 L 19 L 21 L (22-30) mmol/L BUN 36 H 33 H 27 H (7-17) mg/dL Creatinine 4.2 H D 3.2 H 1.9 H (0.6-1.2) mg/dL Glucose 90 89 84 (65-100) mg/dL Calcium 8.8 8.5 8.9 (8.4-10.2) mg/dL Total Bilirubin 0.30 0.30 0.40 (0.1-1.2) mg/dL AST 23 21 20 (5-40) units/L ALT 15 16 14 (7-56) units/L Alkaline Phosphatase 91 97 87 (35-129) units/L Total Protein 6.5 7.0 6.4 (6.3-8.2) g/dL Albumin 2.7 L 2.9 L 2.7 L (3.9-5) g/dL - Imaging Abdominal x-ray: report reviewed CT scan - abdomen: report reviewed CT scan - pelvis: report reviewed Assessment and Plan - Patient Problems (1) Paralytic ileus Current Visit: Yes Status: Acute Plan to address problem: 1) I's and O's 2) CBC, BMP and AXR in the am 3) Ambulate in halls qid 4) Pt told to minimize her parenteral narcotic use.
--- NOTE | 2021-02-07 19:25 | Consultation ---
History of Present Illness - Reason for Consult Consult date: 02/07/21 acute renal failure - History of Present Illness This is a 30-year-old woman who presented to the hospital for scheduled C-s ection and his stay was complicated by acute kidney injury. Nephrology was consulted for further management. Patient denies prior personal or family history of kidney disease. She denies NSAID use she denies history of hematuria, dysuria and urinary retention. She is currently having difficulty urinating on her own but urine output has been noted with Hines placement. Past History Past Medical History: No medical history Past Surgical History: Social history: lives with family, smoking (hx MJ use), full code Family history: hypertension Medications and Allergies Allergies Allergy/AdvReac Type Severity Reaction Status Date / Time No Known Allergies Allergy Unverified 02/04/21 06:54 Home Medications Medication Instructions Recorded Confirmed Last Taken Type Ibuprofen [Motrin 800 MG tab] 800 mg PO Q6H PRN #30 tablet 02/04/21 Unknown Rx oxyCODONE /ACETAMINOPHEN [Percocet 1 tab PO Q6H PRN #30 tablet 02/04/21 Unknown Rx 5/325 mg] Active Meds: Active Medications Acetaminophen (Acetaminophen 325 Mg Tab) 650 mg PO Q4H PRN PRN Reason: Fever >100.5/LANIER Alprazolam (Alprazolam 0.25 Mg Tab) 0.5 mg PO Q8H PRN PRN Reason: Anxiety Last Admin: 02/06/21 08:55 Dose: 0.5 mg Documented by: Diphenhydramine HCl (Diphenhydramine 50 Mg/Ml Vial) 12.5 mg IV Q2H PRN PRN Reason: Itching Ferrous Sulfate (Ferrous Sulfate 325 Mg Tab) 325 mg PO BID TRISHA Last Admin: 02/07/21 06:40 Dose: Not Given Documented by: Hydrocortisone Acetate (Hydrocortisone 25 Mg Rectal Supp) 25 mg ND BID PRN PRN Reason: Hemorrhoids Oxytocin/Sodium Chloride (Pitocin/Ns 30 Unit/500ml) 30 units in 500 mls @ 0 mls/hr IV TITR TRISHA; Protocol Oxytocin/Sodium Chloride (Pitocin/Ns 30 Unit/500ml) 30 units in 500 mls @ 40 mls/hr IV TITR TRISHA; Protocol Lactated Ringer's (Lactated Ringers) 1,000 mls @ 125 mls/hr IV DIRECT TRISHA Last Admin: 02/07/21 05:43 Dose: 125 mls/hr Documented by: Dextrose/Lactated Ringer's (D5lr) 1,000 mls @ 150 mls/hr IV DIRECT TRISHA Last Admin: 02/07/21 17:57 Dose: 150 mls/hr Documented by: Ampicillin Sodium (Ampicillin/Ns 2 Gm/100 Ml) 2 gm in 100 mls @ 100 mls/hr IV Q6H TRISHA; Protocol Stop: 02/08/21 13:59 Last Admin: 02/07/21 18:18 Dose: 100 mls/hr Documented by: Ceftriaxone Sodium (Rocephin/Ns 1 Gm/50 Ml) 1 gm in 50 mls @ 100 mls/hr IV Q24H TRISHA; Protocol Ibuprofen (Ibuprofen 800 Mg Tab) 800 mg PO Q6H PRN PRN Reason: Pain, Mild (1-3) Last Admin: 02/06/21 15:34 Dose: 800 mg Documented by: Ketorolac Tromethamine (Ketorolac 30 Mg/1 Ml Inj) 30 mg IV Q6H PRN PRN Reason: Pain, Moderate (4-6) Stop: 02/11/21 18:10 Last Admin: 02/07/21 15:45 Dose: 30 mg Documented by: Magnesium Hydroxide (Magnesium Hydroxide (Mom) Oral Liqd Udc) 30 ml PO QHS PRN PRN Reason: Constip Unrelieved By Senna Last Admin: 02/06/21 15:34 Dose: 30 ml Documented by: Multi-Ingredient Ointment (Lanolin/Zinc/Dimethicone (Lansinoh) 7 Gm) 1 applic TP PRN PRN PRN Reason: dryness/cracking Nalbuphine HCl (Nalbuphine 10 Mg/1 Ml Inj) 2.5 mg IV Q2H PRN PRN Reason: Itching Naloxone HCl (Naloxone 0.4 Mg/1 Ml Inj) 0.2 mg IV Q2MIN PRN PRN Reason: Res Rate </= 8 or 02 SAT < 92% Ondansetron HCl (Ondansetron 4 Mg/2 Ml Inj) 4 mg IV Q8H PRN PRN Reason: Nausea And Vomiting Last Admin: 02/07/21 03:32 Dose: 4 mg Documented by: Oxycodone/Acetaminophen (Oxycodone /Acetaminophen 5-325mg Tab) 2 tab PO Q8H PRN PRN Reason: Pain, Moderate (4-6) Last Admin: 02/06/21 10:40 Dose: 2 tab Documented by: Promethazine HCl (Promethazine 25 Mg Tab) 25 mg PO Q6H PRN PRN Reason: Nausea And Vomiting Promethazine HCl (Promethazine 25 Mg Rect Supp) 25 mg ND Q6H PRN PRN Reason: N/V IF NPO AND NO IV ACCESS Senna (Sennosides 8.6 Mg Tab) 17.2 mg PO QHS PRN PRN Reason: Constipation Sertraline HCl (Sertraline 25 Mg Tab) 25 mg PO QDAY TRISHA Last Admin: 02/06/21 11:07 Dose: 25 mg Documented by: Simethicone (Simethicone 80 Mg Chew Tab) 80 mg PO Q6H PRN PRN Reason: Gas pain Last Admin: 02/05/21 02:10 Dose: 80 mg Documented by: Sodium Chloride (Sodium Chloride 0.9% 10 Ml Flush Syringe) 10 ml IV PRN PRN PRN Reason: flush Witch Jillian/Glycerin (Witch Jillian/ Glycerin Pad) 1 each TP PRN PRN PRN Reason: Hemorrhoids/cleansing/soothing Last Admin: 02/06/21 12:52 Dose: 1 each Documented by: Review of Systems Constitutional: no fever, no chills Ears, nose, mouth and throat: no nasal congestion, no nasal discharge Cardiovascular: no chest pain, no shortness of breath Respiratory: no cough, no shortness of breath Gastrointestinal: no vomiting, no diarrhea Musculoskeletal: no muscle weakness, no muscle cramps Integumentary: no rash, no pruritis Neurological: no weakness, no numbness Psychiatric: no memory loss, no paranoia Hematologic/Lymphatic: no easy bruising Allergic/Immunologic: no wheezing Exam - Vital Signs Vital signs: Vital Signs Temp Pulse Resp BP 98.2 F 100 H 15 127/67 02/04/21 07:33 02/04/21 07:33 02/04/21 07:33 02/04/21 07:33 - Physical Exam Narrative exam: General: No acute distress HEENT: Oral mucosa moist Neck: Supple, no JVD Chest: Clear to auscultation bilaterally Heart: RRR, S1 and S2, no pericardial rub Abdomen: Soft, nontender, no renal bruit Extremity: No peripheral cyanosis, edema Neurological: Alert, awake, no asterixis Dermatology: No skin rash Psych: No agitation Musculoskeletal: No joint effusion Results - Lab Results 02/07/21 03:25 02/07/21 03:25 Most recent lab results Calcium 8.9 mg/dL (8.4-10.2) 02/07/21 03:25 Assessment and Plan Assessment Acute kidney injury Urinary retention Hyponatremia Acidosis Recommendations Stop NSAIDS Check urine culture Check renal ultrasound Voiding trials as able Reduce opioid intake to prevent retention Continue IVF Renally dose medications Avoid nephrotoxins Renal diet No immediate indication for HD
[2021-02-07] MEDS: cefTRIAXone/NS 1 GM/50 ML 1 GM/50 ML BAG IV SCH (23:35)
[2021-02-08 00:24] LABS: Bacteria,Urine 1+ /HPF (Negative); Bilirubin,Urine NEG (Negative); Blood,Urine LG (Negative); Color,Urine Yellow (Yellow); Mucus,Urine 2+ /HPF; Urobilinogen,Urine < 2.0 mg/dL (<2.0)
[2021-02-08] MEDS: AMPICILLIN/NS 2 GM/100 ML 2 GM/100 ML BAG IV SCH ×2 (05:50→12:29)
[2021-02-08] MEDS: LACTATED RINGERS 1,000 ML IV SCH (05:51)
[2021-02-08 08:20] LABS: Basophils % (Auto) 0.2 % (0.0-1.8); Eosinophils % (Auto) 0.8 % (0.0-4.3); Hematocrit 29.3 % (30.3-42.9); Hemoglobin 9.5 gm/dl (10.1-14.3); Lymphocytes # (Auto) 0.7 K/mm3 (1.2-5.4); Lymphocytes % (Auto) 11.6 % (13.4-35.0); Mean Corpuscular HGB Conc 33 % (30-34); Mean Corpuscular Volume 81 fl (79-97); Monocytes # (Auto) 0.5 K/mm3 (0.0-0.8); Monocytes % (Auto) 8.7 % (0.0-7.3); Platelet Count 262 K/mm3 (140-440); Red Cell Distribution Width 17.9 % (13.2-15.2)
--- NOTE | 2021-02-08 08:31 | Progress Note ---
Assessment and Plan - Patient Problems (1) Paralytic ileus Current Visit: Yes Status: Acute Plan to address problem: 1) Continue NG 2) Ambulate frequently 3) AXR, CBC, Mg, TSH and BMP in the am Subjective Date of service: 02/08/21 Patient Reports: Positive: no new complaints, flatus, no bowel movement Objective Vital Signs - 12hr 02/08/21 02/08/21 00:00 04:00 Temperature 98.6 F 98.6 F Pulse Rate 99 H 89 Respiratory 18 18 Rate Blood Pressure 131/84 129/79 [Left] - Abdomen soft, bowel sounds hypoactive (NT, moderately protuberant) - Labs 02/08/21 07:28 02/08/21 07:28 - Imaging Abdominal x-ray: report reviewed
[2021-02-08 08:36] LABS: Alanine Aminotransferase 14 units/L (7-56); Albumin 2.3 g/dL (3.9-5); Blood Urea Nitrogen 13 mg/dL (7-17); Calcium 8.6 mg/dL (8.4-10.2); Hemolysis Index 47
--- NOTE | 2021-02-08 08:47 | XRay Report ---
ABDOMEN 1 VIEW INDICATION / CLINICAL INFORMATION: sbo vs ileus. COMPARISON: One day prior FINDINGS: TUBES / LINES: Enteric tube noted with tip in the stomach and sidehole likely regional to the gastroe sophageal junction. BOWEL GAS PATTERN: Multiple loops of small and large bowel with gaseous prominence throughout the mid abdomen, fairly similar compared with reference exam from one day prior. FREE AIR / EXTRALUMINAL GAS: None seen. ADDITIONAL FINDINGS: No significant additional findings. IMPRESSION: 1. Gaseous prominence of the small bowel and colon throughout the abdomen with large amount of stool regional to the ascending colon. Given the presence of gas in the colon, ileus is favored over partia l small bowel obstruction. 2. Enteric tube sidehole is at the gastroesophageal junction region. Patient will likely benefit from advancing the enteric tube approximately 5-10 cm. Signer Name: Raz Rodríguez MD Signed: 02/08/2021 8:43 AM Workstation Name: [id number]
[2021-02-08 09:03] LABS: BUN/Creatinine Ratio 33
[2021-02-08] MEDS: SERTRALINE 25 MG TAB PO SCH (09:40)
[2021-02-08] MEDS: oxyCODONE /ACETAMINOPHEN 5-325MG TAB PO PRN (09:41)
--- NOTE | 2021-02-08 09:43 | Ultrasound Report ---
ULTRASOUND RENAL INDICATION / CLINICAL INFORMATION: LUIS FELIPE. COMPARISON: None available. FINDINGS: RIGHT KIDNEY: Length = 10.7 cm. - Echogenicity: Normal. - Cortical Thickness: Normal. - Hydronephrosis: None. - Cyst / Mass: None. - Stones: None seen. LEFT KIDNEY: Length = 12.1 cm. - Echogenicity: Normal. - Cortical Thickness: Normal. - Hydronephrosis: None. - Cyst / Mass: None. - Stones: None seen. URINARY BLADDER: Not well visualized FREE FLUID: None. ADDITIONAL FINDINGS: None. IMPRESSION: 1. No significant abnormality. Signer Name: Raz Rodríguez MD Signed: 02/08/2021 9:38 AM Workstation Name: [id number]
--- NOTE | 2021-02-08 10:20 | Progress Note ---
Assessment and Plan - Patient Problems (1) Small bowel obstruction Current Visit: Yes Status: Acute Plan to address problem: With transition into the colon ~splenic flexure. Possible ideations versus compression by the sciatic fluid Urgent surgery consult requested NG tube till then (2) LUIS FELIPE (acute kidney injury) Current Visit: Yes Status: Acute Plan to address problem: ATN versus vasomotor nephropathy Questionable contrast-induced IV fluids for now Nephrology consult requested We will repeat the BMP because there is a dramatic rise in creatinine which may be an error to be ruled out (3) S/P Current Visit: Yes Status: Acute Plan to address problem: Slight serosanguineous discharge present Otherwise surgical incision looks near normal (4) Urinary tract infection Current Visit: Yes Status: Acute Plan to address problem: IV Rocephin 1 g every 24 (5) DVT prophylaxis Current Visit: Yes Status: Acute Plan to address problem: On SCDs and GI prophylaxis Subjective Date of service: 02/08/21 Principal diagnosis: s/p repeat LTCS Objective - Constitutional Vitals: Vital Signs - 12hr 02/08/21 02/08/21 02/08/21 00:00 04:00 09:40 Temperature 98.6 F 98.6 F 98.6 F Pulse Rate 99 H 89 95 H Respiratory 18 18 18 Rate Blood Pressure 138/90 Blood Pressure 131/84 129/79 [Left] O2 Sat by Pulse 98 Oximetry 02/08/21 09:41 Temperature Pulse Rate Respiratory 20 Rate Blood Pressure Blood Pressure [Left] O2 Sat by Pulse Oximetry General appearance: Present: no acute distress, well-nourished - EENT Eyes: PERRL, EOM intact ENT: hearing intact, clear oral mucosa Ears: bilateral: normal - Neck Neck: supple, normal ROM - Respiratory Respiratory effort: normal Respiratory: bilateral: CTA - Breasts Breasts: normal - Cardiovascular Heart rate: 78 Rhythm: regular Heart Sounds: Present: S1 & S2. Absent: gallop, rub Extremities: pulses intact, No edema, normal color, Full ROM - Gastrointestinal General gastrointestinal: Present: tender, distended, hypoactive bowel sounds - Genitourinary Female genitourinary: normal - Integumentary Integumentary: clear, warm, dry - Musculoskeletal Musculoskeletal: 1, strength equal bilaterally - Neurologic Neurologic: moves all extremities - Psychiatric Psychiatric: memory intact, appropriate mood/affect, intact judgment & insight - Labs CBC & Chem 7: 02/08/21 07:28 02/08/21 07:28 Labs: Abnormal lab results 02/07/21 02/08/21 02/08/21 Range/Units 23:50 07:28 07:28 RBC 3.60 L (3.65-5.03) M/mm3 Hgb 9.5 L (10.1-14.3) gm/dl Hct 29.3 L (30.3-42.9) % MCH 27 L (28-32) pg RDW 17.9 H (13.2-15.2) % Lymph % (Auto) 11.6 L (13.4-35.0) % [place] % (Auto) 8.7 H (0.0-7.3) % Lymph # (Auto) 0.7 L (1.2-5.4) K/mm3 Seg Neutrophils % 78.7 H (40.0-70.0) % Creatinine 0.4 L D (0.6-1.2) mg/dL Total Protein 5.9 L (6.3-8.2) g/dL Albumin 2.3 L (3.9-5) g/dL Urine WBC (Auto) 15.0 H (0.0-6.0) /HPF
[2021-02-08] MEDS ORDERED: PHENOL 1.4% 177 ML BOTTLE MM PRN (10:58)
[2021-02-08] MEDS: LORazepam 2 MG/ML VIAL IV PRN (12:13)
--- NOTE | 2021-02-08 14:42 | Progress Note ---
Assessment and Plan - Patient Problems (1) H/O: Current Visit: No Status: Acute Plan to address problem: s/p c/s, now POD4. Improving from postoperative stand point. Pain well controlled. Advancing care pending improvement of other issues. (2) Anxiety Current Visit: No Status: Acute Plan to address problem: Continue home Zoloft, high risk factor of depression (3) LUIS FELIPE (acute kidney injury) Current Visit: Yes Status: Acute Plan to address problem: --Resolved with jade in place, conservative measures. Appreciate recommmendations from hospitalists and french edge operator. Consider CT Urogram to further evaluate pathology. Continue IVF. Continue jade catheter for now. On Abx for possible concurrent UTI. UA, now clear. (4) Paralytic ileus Current Visit: Yes Status: Acute Plan to address problem: Patient with imaging findings c/w SBO (possible 2/2 ascitic fluid) vs postoperative ileus. Passing continuing to pass flatus. No BM thus far. NPO with NG tube in place. Surgery managing. Studies of para fluid pending. Appreciate recs. Trending AXR for ileus improvement/resolution Subjective - Subjective Date of service: 02/08/21 Principal diagnosis: s/p repeat LTCS, POD4 Interval history: Postoperative course c/b bowel ileus vs obstruction (NG tube in place), LUIS FELIPE (resolving, jade in place), and ascities unclear origin. Patient reports that she is improving. Ambulating in the room. NPO. NG tube in place, reports uncomfortable, difficult to sleep. Reports abdominal pain, left sided, is improving. Passing flatus, no BM. Jade in place with clear yellow urine. Baby doing well in the room. Patient reports: pain well controlled, flatus [place]: doing well Objective - Vital Signs Latest vital signs: Vital Signs Temp Pulse Resp BP BP Pulse Ox Pulse Ox 02/08/21 14:26 99.3 F 84 18 133/82 97 02/08/21 09:41 20 02/08/21 09:40 98.6 F 95 H 18 138/90 98 02/08/21 08:10 97 02/08/21 04:00 98.6 F 89 18 129/79 02/08/21 00:00 98.6 F 99 H 18 131/84 08/20/21 20:20 98 02/07/21 18:00 97 02/07/21 16:26 98.4 F 99 H 18 126/79 97 02/07/21 16:25 97 Intake and Output 02/07/21 02/08/21 02/08/21 23:59 07:59 15:59 Intake Total 100 400 Output Total 10 1500 Balance 90 -1100 Intake: IV 100 200 AMPICILLIN/NS 2 GM/100 ML 100 200 2 gm In 100 ml @ 100 mls /hr IV Q6H [facility] Rx#: [id number] Oral 200 Output: Gastric Drainage 10 300 Urine 1200 Indwelling Catheter 600 Void 600 Other: Total, Intake Amount 200 Total, Output Amount 10 300 # Voids Void 1 - Exam Cardiovascular: Present: Regular rate Lungs: Present: Clear to auscultation, Normal air movement Abdomen: Present: normal appearance, distention, abnormal bowel sounds (decreased) Uterus: Present: firm Incision: Present: normal - Labs Labs: Abnormal lab results 02/07/21 02/08/21 02/08/21 Range/Units 23:50 07:28 07:28 RBC 3.60 L (3.65-5.03) M/mm3 Hgb 9.5 L (10.1-14.3) gm/dl Hct 29.3 L (30.3-42.9) % MCH 27 L (28-32) pg RDW 17.9 H (13.2-15.2) % Lymph % (Auto) 11.6 L (13.4-35.0) % [place] % (Auto) 8.7 H (0.0-7.3) % Lymph # (Auto) 0.7 L (1.2-5.4) K/mm3 Seg Neutrophils % 78.7 H (40.0-70.0) % Creatinine 0.4 L D (0.6-1.2) mg/dL Total Protein 5.9 L (6.3-8.2) g/dL Albumin 2.3 L (3.9-5) g/dL Urine WBC (Auto) 15.0 H (0.0-6.0) /HPF
[2021-02-08] MEDS: D5W/LACTATED RINGERS 1,000 ML IV SCH (16:05)
[2021-02-08] MEDS: KETOROLAC 30 MG/1 ML INJ IV PRN ×2 (16:06→21:36)
--- NOTE | 2021-02-08 18:20 | Progress Note ---
Assessment and Plan Assessment Acute kidney injury. Renal ultrasound unremarkable. Urinary retention Hyponatremia Acidosis Recommendations Discontinued NSAIDS Voiding trials as able Recommend urology consult if she fails voiding trial Reduce opioid intake to prevent retention Continue IVF Renally dose medications Avoid nephrotoxins Renal diet Subjective Date of service: 02/08/21 Principal diagnosis: s/p repeat LTCS, POD4 Interval history: Resting. Adequate UOP. Objective - Exam Narrative Exam: General: No acute distress HEENT: Oral mucosa moist Neck: Supple, no JVD Chest: Clear to auscultation bilaterally Heart: RRR, S1 and S2, no pericardial rub Abdomen: Soft, nontender, no renal bruit Extremity: No peripheral cyanosis, edema Neurological: Alert, awake, no asterixis Dermatology: No skin rash Psych: No agitation Musculoskeletal: No joint effusion - Vital Signs Vital signs: Vital Signs - 12hr 02/08/21 02/08/21 02/08/21 08:10 09:40 09:41 Temperature 98.6 F Pulse Rate 95 H Respiratory 18 20 Rate Blood Pressure 138/90 Blood Pressure [Left] O2 Sat by Pulse 98 Oximetry O2 Sat by Pulse 97 Oximetry [ Bilateral] 02/08/21 02/08/21 02/08/21 14:26 16:06 17:58 Temperature 99.3 F 98.5 F Pulse Rate 84 100 H Respiratory 18 20 Rate Blood Pressure 133/82 Blood Pressure 125/65 [Left] O2 Sat by Pulse 97 Oximetry O2 Sat by Pulse Oximetry [ Bilateral] - Lab 02/08/21 07:28 02/08/21 07:28 Most recent lab results Calcium 8.6 mg/dL (8.4-10.2) 02/08/21 07:28 Medications & Allergies - Medications Allergies/Adverse Reactions: Allergies No Known Allergies Allergy (Unverified 02/04/21 06:54) Home Medications: Home Medications Medication Instructions Recorded Confirmed Last Taken Type Ibuprofen [Motrin 800 MG tab] 800 mg PO Q6H PRN #30 tablet 02/04/21 Unknown Rx oxyCODONE /ACETAMINOPHEN [Percocet 1 tab PO Q6H PRN #30 tablet 02/04/21 Unknown Rx 5/325 mg] Active Medications: Generic Name Dose Route Start Last Admin Trade Name Freq PRN Reason Stop Dose Admin Alprazolam 0.5 mg 02/05/21 03:24 02/06/21 08:55 Alprazolam 0.25 Mg Tab PO 0.5 mg Q8H PRN Administration Anxiety Diphenhydramine HCl 12.5 mg 02/04/21 06:20 Diphenhydramine 50 Mg/Ml Vial IV Q2H PRN Itching Ferrous Sulfate 325 mg 02/05/21 10:00 02/07/21 06:40 Ferrous Sulfate 325 Mg Tab PO Not Given BID TRISHA Hydrocortisone Acetate 25 mg 02/04/21 12:00 Hydrocortisone 25 Mg Rectal Supp ND BID PRN Hemorrhoids Oxytocin/Sodium Chloride 30 units in 500 mls @ 0 mls/hr 02/04/21 08:00 Pitocin/Ns 30 Unit/500ml IV TITR TRISHA Protocol As Directed Oxytocin/Sodium Chloride 30 units in 500 mls @ 40 mls/hr 02/04/21 12:00 Pitocin/Ns 30 Unit/500ml IV TITR TRISHA Protocol Lactated Ringer's 1,000 mls @ 125 mls/hr 02/04/21 18:00 02/08/21 05:51 Lactated Ringers IV 125 mls/hr DIRECT TRISHA Administration Dextrose/Lactated Ringer's 1,000 mls @ 150 mls/hr 02/06/21 18:00 02/08/21 16:05 D5lr IV 150 mls/hr DIRECT TRISHA Administration Ceftriaxone Sodium 1 gm in 50 mls @ 100 mls/hr 02/07/21 18:00 02/07/21 23:35 Rocephin/Ns 1 Gm/50 Ml IV 02/13/21 18:29 100 mls/hr Q24H TRISHA Administration Protocol Ketorolac Tromethamine 30 mg 02/08/21 10:12 02/08/21 16:06 Ketorolac 30 Mg/1 Ml Inj IV 02/13/21 10:11 30 mg Q6H PRN Administration Pain, Moderate (4-6) Lorazepam 0.5 mg 02/08/21 10:11 02/08/21 12:13 Lorazepam 2 Mg/Ml Vial IV 0.5 mg Q4H PRN Administration Anxiety Multi-Ingredient Ointment 1 applic 02/04/21 12:00 Lanolin/Zinc/Dimethicone (Lansinoh) 7 Gm TP PRN PRN dryness/cracking Nalbuphine HCl 2.5 mg 02/04/21 06:20 Nalbuphine 10 Mg/1 Ml Inj IV Q2H PRN Itching Naloxone HCl 0.2 mg 02/04/21 06:20 Naloxone 0.4 Mg/1 Ml Inj IV Q2MIN PRN Res Rate </= 8 or 02 SAT < 92% Ondansetron HCl 4 mg 02/04/21 11:30 02/07/21 03:32 Ondansetron 4 Mg/2 Ml Inj IV 4 mg Q8H PRN Administration Nausea And Vomiting Phenol 1 spray 02/08/21 10:58 Phenol 1.4% 177 Ml Bottle MM PRN PRN Sore Throat Promethazine HCl 25 mg 02/04/21 12:00 Promethazine 25 Mg Rect Supp ND Q6H PRN N/V IF NPO AND NO IV ACCESS Sodium Chloride 10 ml 02/04/21 11:00 Sodium Chloride 0.9% 10 Ml Flush Syringe IV PRN PRN flush Witch Jillian/Glycerin 1 each 02/04/21 12:00 02/06/21 12:52 Witch Jillian/ Glycerin Pad TP 1 each PRN PRN Administration Hemorrhoids/cleansing/soothing
[2021-02-08] MEDS: cefTRIAXone/NS 1 GM/50 ML 1 GM/50 ML BAG IV SCH (21:31)
[2021-02-09] MEDS: LORazepam 2 MG/ML VIAL IV PRN ×2 (00:16→10:03)
[2021-02-09] MEDS: cefTRIAXone/NS 1 GM/50 ML 1 GM/50 ML BAG IV SCH (00:37)
[2021-02-09] MEDS: D5W/LACTATED RINGERS 1,000 ML IV SCH ×2 (05:41→17:41)
[2021-02-09 06:44] LABS: Basophils # (Auto) 0.2 K/mm3 (0.0-0.1); Basophils % (Auto) 2.7 % (0.0-1.8); Eosinophils # (Auto) 0.1 K/mm3 (0.0-0.4); Eosinophils % (Auto) 1.6 % (0.0-4.3); Hematocrit 27.1 % (30.3-42.9); Hemoglobin 8.9 gm/dl (10.1-14.3); Lymphocytes # (Auto) 0.5 K/mm3 (1.2-5.4); Lymphocytes % (Auto) 7.9 % (13.4-35.0); Mean Corpuscular HGB Conc 33 % (30-34); Mean Corpuscular Volume 82 fl (79-97); Monocytes # (Auto) 0.7 K/mm3 (0.0-0.8); Platelet Count 239 K/mm3 (140-440); Red Blood Count 3.32 M/mm3 (3.65-5.03); Red Cell Distribution Width 18.1 % (13.2-15.2)
[2021-02-09 06:55] LABS: BUN/Creatinine Ratio 33; Blood Urea Nitrogen 13 mg/dL (7-17); Calcium 8.7 mg/dL (8.4-10.2); Hemolysis Index 0
--- NOTE | 2021-02-09 08:52 | XRay Report ---
ABDOMEN FLAT AND UPRIGHT 0832 INDICATION: ileus COMPARISON: 02/08/2021 FINDINGS: Artifact overlies the image. Previous nasogastric tube has been removed. No pneumoperitoneu m is seen. Gas is seen throughout the colon. No significant small bowel dilatation is seen. No small bowel air-fluid levels are seen on upright view. I do not see convincing evidence of small bowel obst ruction. Signer Name: Cristobal Styles MD Signed: 02/09/2021 8:48 AM Workstation Name: [id number]
--- NOTE | 2021-02-09 14:09 | Progress Note ---
Assessment and Plan - Patient Problems (1) Paralytic ileus Current Visit: Yes Status: Acute Plan to address problem: 1) CLD Subjective Date of service: 02/09/21 Patient Reports: Positive: no new complaints, flatus (NG is out.) Objective Vital Signs - 12hr 02/09/21 09:01 Temperature 98.6 F Pulse Rate 90 Respiratory 18 Rate Blood Pressure 142/87 O2 Sat by Pulse 97 Oximetry - Abdomen soft, bowel sounds normal (Less protuberant. NT.) - Labs 02/09/21 05:57 02/09/21 05:57 Diabetes panel 02/09/21 Range/Units 05:57 Sodium 140 (137-145) mmol/L Potassium 3.5 L (3.6-5.0) mmol/L Chloride 105.2 (98-107) mmol/L Carbon Dioxide 26 (22-30) mmol/L BUN 13 (7-17) mg/dL Creatinine 0.4 L (0.6-1.2) mg/dL Glucose 92 (65-100) mg/dL Calcium 8.7 (8.4-10.2) mg/dL Thyroid panel 02/09/21 Range/Units 05:57 TSH 1.270 (0.270-4.200) mlU/mL Calcium panel 02/09/21 Range/Units 05:57 Calcium 8.7 (8.4-10.2) mg/dL Pituitary panel 02/09/21 02/09/21 Range/Units 05:57 05:57 Sodium 140 (137-145) mmol/L Potassium 3.5 L (3.6-5.0) mmol/L Chloride 105.2 (98-107) mmol/L Carbon Dioxide 26 (22-30) mmol/L BUN 13 (7-17) mg/dL Creatinine 0.4 L (0.6-1.2) mg/dL Glucose 92 (65-100) mg/dL Calcium 8.7 (8.4-10.2) mg/dL TSH 1.270 (0.270-4.200) mlU/mL Adrenal panel 02/09/21 Range/Units 05:57 Sodium 140 (137-145) mmol/L Potassium 3.5 L (3.6-5.0) mmol/L Chloride 105.2 (98-107) mmol/L Carbon Dioxide 26 (22-30) mmol/L BUN 13 (7-17) mg/dL Creatinine 0.4 L (0.6-1.2) mg/dL Glucose 92 (65-100) mg/dL Calcium 8.7 (8.4-10.2) mg/dL - Imaging Abdominal x-ray: report reviewed
--- NOTE | 2021-02-09 15:05 | Progress Note ---
Assessment and Plan - Patient Problems (1) H/O: Current Visit: No Status: Acute Plan to address problem: s/p c/s, now POD5. Improving from postoperative stand point. Pain well controlled. Advancing care pending improvement of other issues. (2) Anxiety Current Visit: No Status: Acute Plan to address problem: Continue home Zoloft, high risk factor of depression (3) LUIS FELIPE (acute kidney injury) Current Visit: Yes Status: Acute Plan to address problem: --Resolved with jade in place, conservative measures. Appreciate recommmendations from hospitalists and test deskman. Ordered CT Urogram to further evaluate pathology. Plan for urology consult if any further concern for urinary tract. Continue IVF. Continue jade catheter for now. On Abx for possible concurrent UTI. UA, now clear. (4) Paralytic ileus Current Visit: Yes Status: Acute Plan to address problem: Patient with imaging findings c/w SBO (possible 2/2 ascitic fluid) vs p ostoperative ileus. Passing continuing to pass flatus. No BM thus far. NG tube somehow fell out pt patient. Surgery managing. Studies of para fluid pending. Appreciate recs. Trending AXR for ileus improvement/resolution Subjective - Subjective Date of service: 02/09/21 Principal diagnosis: s/p repeat LTCS, POD5 Interval history: Postoperative course c/b bowel ileus vs obstruction (NG tube in place), LUIS FELIPE (resolving, jade in place), and ascities unclear origin. Patient reports that she is improving. Ambulating in the room. NPO. Somehow removed yesterday, unclear. Gen surgery reported said ok to keep out for now per patient report. Reports abdominal pain, left sided, is improving. Passing flatus, no BM. Jade in place with clear yellow urine. Baby discharged today. Patient reports: pain well controlled, flatus : doing well Objective - Vital Signs Latest vital signs: Vital Signs Temp Pulse Resp BP BP Pulse Ox Pulse Ox 02/09/21 09:01 98.6 F 90 18 142/87 97 02/08/21 23:31 98.2 F 66 20 125/77 100 02/08/21 22:06 18 02/08/21 21:36 18 02/08/21 20:24 99 02/08/21 17:58 98.5 F 100 H 125/65 02/08/21 16:06 20 Intake and Output 02/08/21 02/09/21 02/09/21 23:59 07:59 15:59 Intake Total 1010 360 Output Total 1200 1800 Balance -190 -1440 Intake: IV 1010 D5lr 1,000 ml @ 150 mls/ 1000 hr IV DIRECT [facility] Rx#: [id number] Right Forearm 10 Oral 360 Output: Gastric Drainage 800 700 Urine 400 1100 Indwelling Catheter 1100 Void 400 Other: Total, Intake Amount 240 Total, Output Amount 400 700 - Exam Abdomen: Present: normal appearance, soft, distention (improving), normal bowel sounds Uterus: Present: firm Extremities: Present: normal Incision: Present: normal - Labs Labs: Abnormal lab results 02/09/21 02/09/21 Range/Units 05:57 05:57 RBC 3.32 L (3.65-5.03) M/mm3 Hgb 8.9 L (10.1-14.3) gm/dl Hct 27.1 L (30.3-42.9) % MCH 27 L (28-32) pg RDW 18.1 H (13.2-15.2) % Lymph % (Auto) 7.9 L (13.4-35.0) % [place] % (Auto) 11.0 H (0.0-7.3) % Baso % (Auto) 2.7 H (0.0-1.8) % Lymph # (Auto) 0.5 L (1.2-5.4) K/mm3 Baso # (Auto) 0.2 H (0.0-0.1) K/mm3 Seg Neutrophils % 76.8 H (40.0-70.0) % Potassium 3.5 L (3.6-5.0) mmol/L Creatinine 0.4 L (0.6-1.2) mg/dL Magnesium 1.50 L (1.7-2.3) mg/dL
[2021-02-10] MEDS: KETOROLAC 30 MG/1 ML INJ IV PRN ×2 (00:48→22:46)
[2021-02-10] MEDS: FERROUS SULFATE 325 MG TAB PO SCH ×2 (00:48→22:46)
--- NOTE | 2021-02-10 01:45 | Cat Scan Report ---
CT abdomen pelvis w con INDICATION / CLINICAL INFORMATION: Abdominal and pelvic pain. Hematuria with recent . TECHNIQUE: CT abdomen pelvis with and without contrast. Delayed urographic phase performed. All CT scans at this location are performed using CT dose reduction for ALARA by means of automated exposure control. COMPARISON: 02/06/2021 FINDINGS: Abdomen and pelvis: When compared to the most recent exam on 02/06/2021 ascites has moderately improve d in the interim. Tiny pleural effusions are present. Anasarca has also slightly improved. The liver, gallbladder, spleen, pancreas adrenal glands and kidneys are unremarkable. Previously seen small and large bowel distention has improved. Small free pelvic fluid persists. There is evidence o f recent section. Urinary bladder contains some nondistended gas with indwelling Hines serge ter. The urinary bladder wall appears mildly thickened. Delayed phase imaging demonstrates no evidenc e of spill from the ureters or urinary bladder. Review of bone windows demonstrates mild thoracolumbar degenerative changes. IMPRESSION: 1. No evidence of intraperitoneal/extraperitoneal spill from the urinary bladder on the delayed nephr ographic phase images. No focal contrast extravasation from either ureter identified. The urinary giana dder wall does appear moderately thickened and urinary bladder wall injury is not excluded. 2. Extensive postoperative changes consistent with recent . A small postoperative fluid irene ection is identified along the inferior aspect of the right rectus abdominous muscle best seen on axi al image 155 of series 4. 3. Overall improving ascites and anasarca when compared to 02/06/2021. Postoperative ileus appears to be improving. 4. Enlarged, appearing uterus. Signer Name: Cash Miller MD Signed: 02/10/2021 1:41 AM Workstation Name: [id number]
[2021-02-10] MEDS: D5W/LACTATED RINGERS 1,000 ML IV SCH (05:48)
--- NOTE | 2021-02-10 09:36 | Event Note ---
Date: 02/10/21 recent labs noted, will see prn
--- NOTE | 2021-02-10 09:49 | Progress Note ---
Assessment and Plan Patient does have a problem with elevated BUN and creatinine. We have consulted with the hospitalist. We are getting a kidney specialist consultation about this problem. Her BUN and creatinine are markedly elevated earlier this morning however they appear to be coming down but they are still not normal.RENAL FUNCTIONS ARE WNL. WILL STOP JADE TODAY. - Patient Problems (1) DVT prophylaxis Current Visit: Yes Status: Acute (2) S/P Current Visit: Yes Status: Acute Plan to address problem: NL POST OP EXAM FROM CSECTION. (3) Small bowel obstruction Current Visit: Yes Status: Acute Plan to address problem: HAVING BMS. WILL TRY CLEAR LIQUIDS TODAY. (4) Urinary tract infection Current Visit: No Status: Acute (5) Anxiety Current Visit: No Status: Acute (6) H/O: Current Visit: No Status: Acute Subjective - Subjective Date of service: 02/10/21 Principal diagnosis: s/p repeat LTCS, POD5 Interval history: Patient. Increase abdominal fluid. Patient has been given NG tube and Jade catheter urine output she had a paracentesis with removal of ascitic fluid from her abdominal cavity this morning.here renal functions have returned to wnl.wwill try clear liquids today. Stop jade today. POSSIBLE D/C IN AM. Patient reports: flatus, bowel movement [place]: doing well Objective - Vital Signs Latest vital signs: Vital Signs Temp Pulse Resp BP Pulse Ox Pulse Ox 02/10/21 08:15 98.3 F 77 18 126/68 99 02/10/21 00:48 12 02/09/21 22:57 100.2 F H 90 20 127/80 99 02/09/21 20:25 98 02/09/21 16:22 98.7 F 68 18 125/75 98 Intake and Output 02/09/21 02/10/21 02/10/21 23:59 07:59 15:59 Intake Total 720 1360 Output Total 500 1400 Balance 220 -40 Intake: IV 1000 D5lr 1,000 ml @ 150 mls/ 1000 hr IV DIRECT [facility] Rx#: [id number] Oral 480 360 Intake, Free Water 240 Output: Urine 500 1400 Indwelling Catheter 500 1400 Other: Total, Intake Amount 480 120 Total, Output Amount 350 600 - Exam Abdomen: Present: normal appearance, soft Incision: Present: normal
--- NOTE | 2021-02-10 13:46 | Progress Note ---
Assessment and Plan - Patient Problems (1) Paralytic ileus Current Visit: Yes Status: Acute Plan to address problem: 1) FLD Subjective Date of service: 02/10/21 Patient Reports: Positive: no new complaints, flatus, bowel movement Objective Vital Signs - 12hr 02/10/21 02/10/21 08:15 08:40 Temperature 98.3 F Pulse Rate 77 Respiratory 18 Rate Blood Pressure 126/68 O2 Sat by Pulse 99 Oximetry O2 Sat by Pulse 98 Oximetry [ Bilateral] - Abdomen soft, bowel sounds normal (NT) - Labs 02/09/21 05:57 02/09/21 05:57 - Imaging Abdominal x-ray: report reviewed CT scan - abdomen: report reviewed CT scan - pelvis: report reviewed
[2021-02-10] MEDS: cefTRIAXone/NS 1 GM/50 ML 1 GM/50 ML BAG IV SCH (18:01)
[2021-02-10 18:43] LABS: Bilirubin,Urine NEG (Negative); Blood,Urine LG (Negative); Color,Urine Yellow (Yellow); Mucus,Urine FEW /HPF
[2021-02-10 18:52] LABS: RBC,Urine > 182.0 /HPF (0.0-6.0)
--- NOTE | 2021-02-10 23:53 | Progress Note ---
Assessment and Plan - Patient Problems (1) Small bowel obstruction Current Visit: Yes Status: Acute Plan to address problem: With transition into the colon ~splenic flexure. Possible ideations versus compression by the sciatic fluid Urgent surgery consult requested NG tube till then (2) LUIS FELIPE (acute kidney injury) Current Visit: Yes Status: Acute Plan to address problem: ATN versus vasomotor nephropathy Questionable contrast-induced IV fluids for now Nephrology consult requested We will repeat the BMP because there is a dramatic rise in creatinine which may be an error to be ruled out (3) S/P Current Visit: Yes Status: Acute Plan to address problem: Slight serosanguineous discharge present Otherwise surgical incision looks near normal (4) Urinary tract infection Current Visit: No Status: Acute Plan to address problem: IV Rocephin 1 g every 24 (5) DVT prophylaxis Current Visit: Yes Status: Acute Plan to address problem: On SCDs and GI prophylaxis Subjective Date of service: 02/09/21 Principal diagnosis: s/p repeat LTCS, POD5 Objective - Constitutional Vitals: Vital Signs - 12hr 02/10/21 20:10 O2 Sat by Pulse 98 Oximetry [ Bilateral] General appearance: Present: no acute distress, well-nourished - EENT Eyes: PERRL, EOM intact ENT: hearing intact, clear oral mucosa Ears: bilateral: normal - Neck Neck: supple, normal ROM - Respiratory Respiratory effort: normal Respiratory: bilateral: CTA - Breasts Breasts: normal - Cardiovascular Rhythm: regular Heart Sounds: Present: S1 & S2. Absent: gallop, rub Extremities: pulses intact, No edema, normal color, Full ROM - Gastrointestinal General gastrointestinal: Present: soft, non-tender, non-distended, normal bowel sounds - Genitourinary Female genitourinary: normal - Integumentary Integumentary: clear, warm, dry - Musculoskeletal Musculoskeletal: 1, strength equal bilaterally - Neurologic Neurologic: moves all extremities - Psychiatric Psychiatric: memory intact, appropriate mood/affect, intact judgment & insight - Labs CBC & Chem 7: 02/09/21 05:57 02/09/21 05:57 Labs: Abnormal lab results 02/10/21 Range/Units Unknown Urine WBC (Auto) 28.0 H (0.0-6.0) /HPF
[2021-02-11 04:01] LABS: Basophils % (Auto) 0.8 % (0.0-1.8); Eosinophils # (Auto) 0.1 K/mm3 (0.0-0.4); Hematocrit 28.8 % (30.3-42.9); Hemoglobin 9.5 gm/dl (10.1-14.3); Lymphocytes # (Auto) 1.1 K/mm3 (1.2-5.4); Lymphocytes % (Auto) 20.1 % (13.4-35.0); Mean Corpuscular HGB Conc 33 % (30-34); Mean Corpuscular Volume 82 fl (79-97); Monocytes # (Auto) 0.6 K/mm3 (0.0-0.8); Monocytes % (Auto) 11.4 % (0.0-7.3); Platelet Count 211 K/mm3 (140-440); Red Cell Distribution Width 17.9 % (13.2-15.2)
[2021-02-11 04:09] LABS: Alanine Aminotransferase 13 units/L (7-56); Albumin 2.6 g/dL (3.9-5); Blood Urea Nitrogen 8 mg/dL (7-17); Calcium 8.4 mg/dL (8.4-10.2); Hemolysis Index 6
[2021-02-11 04:10] LABS: BUN/Creatinine Ratio 20
[2021-02-11] MEDS: FERROUS SULFATE 325 MG TAB PO SCH ×4 (10:58→23:56)
[2021-02-11] MEDS: WITCH HAZEL/ GLYCERIN PAD TP PRN (12:43)
--- NOTE | 2021-02-11 12:43 | Progress Note ---
Assessment and Plan - Patient Problems (1) H/O: Current Visit: No Status: Acute Plan to address problem: s/p c/s, now POD7. Improving from postoperative stand point. Pain well controlled. Meeting goals for discharge home today. (2) Anxiety Current Visit: No Status: Acute Plan to address problem: Continue home Zoloft, high risk factor of depression (3) LUIS FELIPE (acute kidney injury) Current Visit: Yes Status: Acute Plan to address problem: --Resolved with jade in place, conservative measures. Now removed on 02/10/21. Appreciated recommmendations from hospitalists and travel sales consultant. s/p CT Urogram without evidence of extravasation. Continue IVF. UA, now clear. (4) Paralytic ileus Current Visit: Yes Status: Acute Plan to address problem: Patient with imaging findings c/w SBO (possible 2/2 ascitic fluid) vs postoperative ileus. Passing continuing to pass flatus, with with spontaneous BMs. s/p NG. Surgery reports patient ok for discharge home. Subjective - Subjective Date of service: 02/11/21 Principal diagnosis: s/p repeat LTCS, POD7 Interval history: Patient reports that she is improving. Ambulating in the room. Tolerating full liquid diet without issue. Left sided abdominal pain improved. Passing flatus, having BMs. Urinating spontaneously. Baby discharged over the weekend. Patient reports: appetite normal, voiding normally, pain well controlled, flatus, bowel movement, ambulating normally [place]: doing well Objective - Vital Signs Latest vital signs: Vital Signs Temp Pulse Resp BP Pulse Ox Pulse Ox 02/11/21 08:50 98 02/11/21 08:04 98.2 F 60 20 136/77 100 02/11/21 00:07 97.9 F 75 20 126/73 97 02/10/21 20:10 98 Intake and Output 02/10/21 02/11/21 02/11/21 23:59 07:59 15:59 Intake Total 120 240 120 Output Total 600 Balance -480 240 120 Intake: Oral 120 240 120 Output: Urine 600 Void 600 Other: Total, Intake Amount 120 120 120 Total, Output Amount 600 # Voids Void 1 1 1 - Exam Abdomen: Present: normal appearance, soft, normal bowel sounds Uterus: Present: firm Incision: Present: normal - Labs Labs: Abnormal lab results 0802/11/21 02/11/21 Range/Units Unknown 03:34 03:34 RBC 3.50 L (3.65-5.03) M/mm3 Hgb 9.5 L (10.1-14.3) gm/dl Hct 28.8 L (30.3-42.9) % MCH 27 L (28-32) pg RDW 17.9 H (13.2-15.2) % [place] % (Auto) 11.4 H (0.0-7.3) % Lymph # (Auto) 1.1 L (1.2-5.4) K/mm3 Sodium 136 L (137-145) mmol/L Creatinine 0.4 L (0.6-1.2) mg/dL Total Protein 5.7 L (6.3-8.2) g/dL Albumin 2.6 L (3.9-5) g/dL Urine WBC (Auto) 28.0 H (0.0-6.0) /HPF
--- NOTE | 2021-02-11 12:45 | Discharge Summary ---
Providers - Providers Date of Admission: 02/04/21 05:48 Date of discharge: 02/11/21 Attending physician: LOUISE MITCHELL MD 02/06/21 18:13 Consult to Physician [CONS] Routine Comment: Consulting Provider: SCOTTIE ROBERSON Physician Instructions: Please evaluate Reason For Exam: abd ileus Day 2 s/p repeat LTCS 02/06/21 23:36 Consult to Physician [CONS] Routine Comment: Consulting Provider: ANTHONY CAMPUZANO Physician Instructions: Reason For Exam: LUIS FELIPE 02/06/21 23:38 Consult to Physician [CONS] Routine Comment: Consulting Provider: MAHESH CH Physician Instructions: Reason For Exam: SBO 02/09/21 08:00 Consult to Case Management [CONS] Routine Services Needed at Discharge: Other Notified:: n/a Additional Physician Instructions: discharge to [facility] with patient's permission. May need a guardianship form. Primary care physician: LOUISE MITCHELL MD Hospitalization Reason for admission: section Delivery: Procedure: section, repeat low transverse Procedure details: s/p uncomplicated rLTCS Incision: normal complications: other (ileus, LUIS FELIPE, ascites (all resolved spontaneously)) Discharge diagnosis: IUP at term delivered baby: male Hospital course: Patient underwent uncomplicated rLTCS on 02/04/21. Patient with some blood in urine postoperatively that resolved without intervention. Shortly postoperatively, Patient reported having left sided abdominal pain during surgery. On imaging and lab review, found to have bowel ileus vs obstruction, LUIS FELIPE up to Cr 4, and ascities on unclear origin. NG tube was placed that spontaneously came out 2 days later. Hines replaced with resolution of LUIS FELIPE. Ascities drained with paracentesis with evaluation pending, however did not reform on repeat imaging. Antibiotics started for possible concurrent UTI. Hospitalists, general surgery, and Nephrology were consulted for assistance. All issues including the ileus and LUIS FELIPE resolved with conservative measures. Hgb stable during admission, no elevated WBC. Patient continued to improved, tolerating PO with normal BMs and urinating spontaneously after normal CT urogram and discharged in good condition on POD7 with plan for close follow up. Condition at discharge: Good Disposition: 01 HOME / SELF CARE / HOMELESS - Discharge Diagnoses (1) H/O: Status: Acute (2) Anxiety Status: Acute (3) LUIS FELIPE (acute kidney injury) Status: Acute (4) Paralytic ileus Status: Acute Plan - Discharge Medications Prescriptions: Ibuprofen [Motrin 800 MG tab] 800 mg PO Q6H PRN #30 tablet PRN Reason: Pain, Mild (1-3) oxyCODONE /ACETAMINOPHEN [Percocet 5/325 mg] 1 tab PO Q6H PRN #30 tablet PRN Reason: Pain, Moderate (4-6) - Provider Discharge Summary Activity: no sex for 6 weeks, no heavy lifting 4 weeks, no strenuous exercise Diet: routine Instructions: routine Additional instructions: [] Smoking cessation referral if applicable(refer to patient education folder for contact #) [] Refer to [facility]'s [facility] Booklet Call your doctor immediately for: * Fever > 100.5 * Heavy vaginal bleeding ( >1 pad per hour) * Severe persistent headache * Shortness of breath * Reddened, hot, painful area to leg or breast * Drainage or odor from incision. * Keep incision clean and dry at all times and follow doctor's instructions regarding bathing/showering - Follow up plan Follow up: RIANNA GORDILLO JR, MD [Staff Physician] - 7 Days
[2021-02-11] MEDS: ALPRAZolam 0.25 MG TAB PO PRN ×2 (14:15→23:56)
[2021-02-11 15:39] LABS: Hematocrit 34.3 % (30.3-42.9); Mean Corpuscular HGB Conc 32 % (30-34); Mean Corpuscular Volume 83 fl (79-97); Platelet Count 234 K/mm3 (140-440); Red Blood Count 4.14 M/mm3 (3.65-5.03); Red Cell Distribution Width 18.6 % (13.2-15.2)
[2021-02-11 15:53] LABS: Alanine Aminotransferase 14 units/L (7-56); Uric Acid 4.6 mg/dL (3.5-7.6)
[2021-02-11] MEDS ORDERED: ACETAMINOPHEN 325 MG TAB PO PRN (17:58)
[2021-02-12 00:18] VITALS: BP 136/78
[2021-02-14 07:31] LABS: Amylase,Body Fluid 95; LDH,Body Fluid 416; Total Protein,Body Fluid 3.1 (15.0-45.0)
== END 2021-02-11 23:59 | disposition home or self-care (01) | DRG 765 ==
LOC: APU 05:48 → LD 11:22 → OB 13:10
PROC: 10D00Z1 Extraction of Products of Conception, Low, Open Approach (ICD-10-PCS; principal; 2021-02-04)
PROC: 0W9G3ZZ Drainage of Peritoneal Cavity, Percutaneous Approach (ICD-10-PCS; 2021-02-07)
PROC: 0D9670Z Drainage of Stomach with Drainage Device, Via Natural or Artificial Opening (ICD-10-PCS; 2021-02-07)
DX: O99.344 Other mental disorders complicating childbirth (principal); K66.1 Hemoperitoneum; O75.3 Other infection during labor; O34.211 Maternal care for low transverse scar from previous cesarean delivery; F41.9 Anxiety disorder, unspecified; F41.0 Panic disorder [episodic paroxysmal anxiety]; Z3A.38 38 weeks gestation of pregnancy; Z20.822 Contact with and (suspected) exposure to COVID-19; Z37.0 Single live birth; Z82.49 Family history of ischemic heart disease and other diseases of the circulatory system; O99.02 Anemia complicating childbirth; O99.892 Other specified diseases and conditions complicating childbirth; O99.62 Diseases of the digestive system complicating childbirth; E87.1 Hypo-osmolality and hyponatremia; O99.284 Endocrine, nutritional and metabolic diseases complicating childbirth; O68 Labor and delivery complicated by abnormality of fetal acid-base balance; K56.0 Paralytic ileus; R33.9 Retention of urine, unspecified; R18.8 Other ascites; O75.89 Other specified complications of labor and delivery; D64.9 Anemia, unspecified; N17.9 Acute kidney failure, unspecified
CPT/HCPCS: 36415; 49083; 74018; 74019; 74176; 74177; 76770; 80048; 80053; 81001; 82150; 82565; 82947; 83605; 83615; 83735; 84160; 84443; 84450; 84460; 84550; 85014; 85018; 85025; 85027; 85610; 85730; 86592; 86850; 86900; 86901; 87086; 88112; 88305; 89051; 99211; G0378; C1729; G0463; J0290; J0696; J1100; J1170; J1885; J1940; J2060; J2270; J2370; J2405; J2765; J3010; J3360; J3490; J7030; J7120; J7121; Q9967; U0003